=== PATIENT | female | born 1935 ===

== ENCOUNTER 2017-10-23 22:42 | Inpatient (IN) | payer MEDICARE, OTHER ==
--- NOTE | 2017-10-23 23:00 | C.PDOC ---
History Of Present Illness 82 year old female is brought to the ED by EMS for evaluation of neck, chest pain. Patient states her chest and neck pain worsened after which she called 911 , patient at that time started c/o abdominal pain, had 1 episode of vomit. Patient received 4 mg zofran IV patient was found to be hypotensive at 60/40, patient received 500 cc bolus of normal saline after which BP started responding. Patient also repost 3 weeks ago she fell went to [facility] and got multiple X-Rays done but she still c/o pain to her neck. Patient is AOx3 , denies any other complaints at this time. Time Seen by Provider: 10/23/17 22:59 Chief Complaint (Nursing): Chest Pain History Per: Patient, EMS History/Exam Limitations: no limitations Onset/Duration Of Symptoms: Hrs Current Symptoms Are (Timing): Still Present Context: Other Severity: Moderate Pain Scale Rating Of: 5 Quality: Sharp, "Pain" Associated Symptoms: Nausea Exacerbating Factors: Turning, Movement Alleviating Factors: None Recent travel outside of the [place]: No Additional History Per: Patient Past Medical History Reviewed: Historical Data, Nursing Documentation, Vital Signs Vital Signs: Last Vital Signs Temp 99 F 10/24/17 04:15 Pulse 72 10/24/17 04:15 Resp 20 10/24/17 04:15 BP 110/52 L 10/24/17 04:15 Pulse Ox 93 L 10/24/17 04:23 - Medical History PMH: Anxiety, Asthma, HTN Surgical History: Appendectomy, Cholecystectomy Family History: States: Unknown Family Hx - Social History Hx Alcohol Use: No Hx Substance Use: No - Immunization History Hx Tetanus Toxoid Vaccination: No Hx Influenza Vaccination: No Hx Pneumococcal Vaccination: No Review Of Systems Constitutional: Negative for: Fever, Chills Eyes: Negative for: Vision Change Cardiovascular: Positive for: Chest Pain Respiratory: Negative for: Cough, Shortness of Breath Gastrointestinal: Positive for: Vomiting, Abdominal Pain Musculoskeletal: Positive for: Neck Pain. Negative for: Back Pain Skin: Negative for: Rash Neurological: Negative for: Weakness, Numbness, Headache, Dizziness Psych: Negative for: Anxiety Physical Exam - Physical Exam Appears: Non-toxic, No Acute Distress Skin: Warm, Dry Head: Normacephalic Eye(s): bilateral: Normal Inspection Nose: No Discharge Oral Mucosa: Moist Teeth: Edentulous Neck: Paracervical Tenderness, No Step Off Deformity, Supple Chest: Symmetrical, Tenderness (reproducible anterio chest wall discomfort) Cardiovascular: Rhythm Regular, No Murmur Respiratory: No Decreased Breath Sounds, No Rales, No Rhonchi, No Wheezing Gastrointestinal/Abdominal: Soft, No Tenderness, No Guarding, No Rebound Back: Normal Inspection Extremity: Pedal Edema (trace B/L) Extremity: Bilateral: Atraumatic Pulses: Left Dorsalis Pedis: Normal, Right Dorsalis Pedis: Normal Neurological/Psych: Oriented x3 Gait: Unable To Assess ED Course And Treatment - Laboratory Results Result Diagrams: 10/23/17 23:20 10/23/17 23:20 ECG: Interpreted By Me, Viewed By Me ECG Rhythm: Sinus Rhythm (60), Nonspecific Changes O2 Sat by Pulse Oximetry: 93 (On RA) Pulse Ox Interpretation: Normal - Radiology CXR: Interpreted by Me, Viewed By Me Progress Note: Plan: -EKG. -Labs. -CXR. -Ecotrin 325 mg PO. -Morphine 2 mg IVP. -UA Disposition Discussed With : Kristyn Ivan Comment: accepted the pt on her service and took over the care at 4:27 AM Doctor Will See Patient In The: Hospital Counseled Patient/Family Regarding: Studies Performed, Diagnosis - Disposition Disposition: HOSPITALIZED Disposition Time: 22:59 Condition: FAIR Forms: [facility] (Uruguayan) - POA Present On Arrival: Falls Or Trauma, Poor Glycemic Control - Clinical Impression Clinical Impression: Chest pain, Neck pain - Scribe Statement The provider has reviewed the documentation as recorded by the Scribe Uri Tomlinson All medical record entries made by the Scribe were at my direction and personally dictated by me. I have reviewed the chart and agree that the record accurately reflects my personal performance of the history, physical exam, medical decision making, and the department course for this patient. I have also personally directed, reviewed, and agree with the discharge instructions and disposition. Decision To Admit - Pt Status Changed To: Hospital Disposition Of: Inpatient - Admit Certification Admit to Inpatient:: After my assessment, the patient will require hospitalization for at least two midnights. This is because of the severity of symptoms shown, intensity of services needed, and/or the medical risk in this patient being treated as an outpatient. - InPatient: Physician Admission Certification: I certify that this patient requires 2 or more midnights of care for the following reason:: After my assessment, the patient will require hospitalization for at least two midnights. This is because of the severity of symptoms shown, intensity of services needed, and/or the medical risk in this patient being treated as an outpatient. - . Bed Request Type: Telemetry Admitting Physician: Kristyn Ivan Patient Diagnosis: Chest pain, Neck pain
[2017-10-23] MEDS ORDERED: Morphine 4 MG/ML VIAL IV ONE (23:06)
[2017-10-23] MEDS ORDERED: Aspirin 325 mg EC Tablets PO STA (23:06)
[2017-10-23 23:32] LABS: INR 1.1; PROTHROMBIN TIME 12.4 SECONDS (9.7-12.2)
[2017-10-23 23:38] LABS: ALB/GLOB RATIO 1.1 (1.0-2.1); ALBUMIN 3.6 g/dL (3.5-5.0); ALT/SGPT 37 U/L (9-52); AST/SGOT 29 U/L (14-36); BLOOD UREA NITROGEN 16 mg/dL (7-17); CALCIUM 8.2 mg/dl (8.6-10.4); GFR AFRICAN-AMERICAN > 60; GFR NON-AFRICAN AMERICAN > 60
[2017-10-23 23:40] LABS: HEMOGLOBIN 15.8 g/dL (11.0-16.0); MEAN CELL VOLUME 80.8 fL (81.0-99.0); MEAN CORPUSCULAR HEMOGLOBIN 26.8 pg (27.0-31.0); MEAN CORPUSCULAR HGB CONC 33.1 g/dL (33.0-37.0); MEAN PLATELET VOLUME 9.2 fL (7.2-11.7); PLATELET COUNT 131 K/uL (130-400); RBC 5.89 Mil/uL (3.80-5.20)
[2017-10-23 23:49] LABS: B-TYPE NATRIURETIC PEPTIDE 564 pg/mL (0-900)
[2017-10-23] MEDS ORDERED: Morphine 4 MG/ML VIAL ONE (23:55)
[2017-10-24 00:03] LABS: BANDS 8 % (0-2); LYMPHOCYTE 22 % (20-40); MONOCYTE 2 % (0-10); NEUTROPHIL 63 % (50-75); REACTIVE LYMPHOCYTES 5 % (0-0); TOTAL CELLS COUNTED 100
[2017-10-24 00:04] LABS: PLATELET ESTIMATE NORMAL (NORMAL)
[2017-10-24 00:05] LABS: NEUT # 2.1 K/uL (1.8-7.0)
[2017-10-24 00:06] LABS: LYMPH # 0.8 K/uL (1.0-4.3); MONO # 0.1 K/uL (0.0-0.8)
[2017-10-24] MEDS ORDERED: Potassium Chloride 10 mEq ER Tab PO STA (06:23)
[2017-10-24] MEDS ORDERED: Potassium Chloride 20 mEq ER Tab PO ONE ×3 (06:26→11:43)
[2017-10-24 08:19] LABS: CK-MB 0.23 ng/mL (0.0-3.38)
--- NOTE | 2017-10-24 08:53 | RAD ---
HISTORY: chest pain COMPARISON: Chest x-ray performed 10/23/17 TECHNIQUE: Chest, one view. FINDINGS: Examination limited by habitus. LUNGS: Moderate pulmonary venous congestion. No focal consolidation. Please note that chest x-ray has limited sensitivity for the detection of pulmonary masses. PLEURA: No significant pleural effusion identified. No definite pneumothorax . CARDIOVASCULAR: Heart size appears within normal limits. OSSEOUS STRUCTURES: Degenerative changes of the spine. VISUALIZED UPPER ABDOMEN: Unremarkable. OTHER FINDINGS: None. IMPRESSION: Moderate pulmonary venous congestion.
--- NOTE | 2017-10-24 09:13 | RAD ---
Cervical spine radiographs Indication: Neck pain Comparison: None available Findings: Suboptimal examination. Cervical spine is not well-visualized. Lateral view the cervical spine is not seen well beyond C4-C5. Multilevel degenerative changes including intervertebral disc space narrowing, osteophyte formation, and facet arthropathy. Diffuse osseous demineralization limits evaluation for acute fracture lines. The dens tip is obscured. No acute displaced fracture identified on markedly limited views. Limited visualization of the upper lung irene demonstrate nkey-[id number]-right apical interstitial prominence Impression: Suboptimal examination. Cervical spine is not well-visualized. Lateral view the cervical spine is not seen well beyond C4-C5. Diffuse osseous demineralization limits evaluation for acute fracture lines. The dens tip is obscured. Multilevel degenerative changes including intervertebral disc space narrowing, osteophyte formation, and facet arthropathy. No acute displaced fracture identified on markedly limited views. Limited visualization of the upper lung irene demonstrate kstr-ntbwhjg-lpqi-right apical interstitial prominence
[2017-10-24] MEDS: Metoprolol Succinate 25 mg XL Tab PO SCH (09:42)
[2017-10-24 11:07] LABS: MAGNESIUM 1.6 mg/dL (1.6-2.3)
[2017-10-24] MEDS ORDERED: Magnesium Sulfate 1 gm in D5W 1 GM/100 ML BAG IVPB ONE ×2 (14:30→14:45)
--- NOTE | 2017-10-24 14:33 | CP.PCM.PN ---
Subjective - Date & Time of Evaluation Date of Evaluation: 10/24/17 Time of Evaluation: 13:00 - Subjective Subjective: H&P dictated #[id number] Objective - Vital Signs/Intake and Output Vital Signs (last 24 hours): Temp Pulse Resp BP Pulse Ox 98 F 67 16 112/59 L 95 10/24/17 06:11 10/24/17 10:11 10/24/17 09:42 10/24/17 09:42 10/24/17 09:42 - Medications Medications: Current Medications Aspirin (Aspirin) 325 mg PO DAILY [facility] Last Admin: 10/24/17 09:42 Dose: 325 mg Heparin Sodium (Porcine) (Heparin) 5,000 units SC Q8 [facility] Last Admin: 10/24/17 13:55 Dose: 5,000 units Magnesium Sulfate/Dextrose (Magnesium Sulfate 1 Gm/100 Ml D5w) 1 gm in 100 mls @ 200 mls/hr IVPB ONCE ONE Stop: 10/24/17 14:59 Metoprolol Succinate (Toprol Xl) 25 mg PO BID [facility] Last Admin: 10/24/17 09:42 Dose: Not Given - Labs Labs: 10/23/17 23:20 10/23/17 23:20 PT 12.4 SECONDS (9.7-12.2) H 10/23/17 23:20 INR 1.1 10/23/17 23:20 APTT 27 SECONDS (21-34) 10/23/17 23:20
[2017-10-24] MEDS: Magnesium Chloride 64 mg ER Tab PO SCH (16:13)
[2017-10-24] MEDS: Pantoprazole 40 mg EC Tab PO SCH (16:14)
[2017-10-24 16:51] LABS: SQUAMOUS EPITHIAL 9 /hpf (0-5); URINE BACTERIA RARE (<OCC); URINE BILIRUBIN NEGATIVE (NEGATIVE); URINE BLOOD 1+ (NEGATIVE); URINE CLARITY Hazy (Clear); URINE COLOR Yellow (YELLOW); URINE GLUCOSE (UA) NORMAL (Normal); URINE LEUKOCYTE ESTERASE 3+ Leu/uL (Negative); URINE NITRATE NEGATIVE (NEGATIVE); URINE PROTEIN 1+ mg/dL (NEGATIVE); URINE UROBILINOGEN NORMAL mg/dL (0.2-1.0)
[2017-10-24 18:46] LABS: ALB/GLOB RATIO 1.1 (1.0-2.1); ALBUMIN 3.1 g/dL (3.5-5.0); ALT/SGPT 40 U/L (9-52); AMYLASE 34 U/L (30-110); AST/SGOT 27 U/L (14-36); BLOOD UREA NITROGEN 21 mg/dL (7-17); CALCIUM 7.5 mg/dl (8.6-10.4); GFR AFRICAN-AMERICAN > 60; GFR NON-AFRICAN AMERICAN 53; LIPASE 39 U/L (23-300)
[2017-10-24] MEDS ORDERED: cefTRIAXone IV 1 gm in Dextros 50 ML IVPB SCH (22:00)
[2017-10-25 01:15] VITALS: RESP 20
--- NOTE | 2017-10-25 01:25 | CON ---
DATE: HISTORY OF PRESENT ILLNESS: The patient is an 82 years old female who denies history of heart attack in the past. She presented because of neck pain, chest pain as well as abdominal pain and nausea. The patient did vomit once and required 4 mg on IV Zofran. In the ER, the patient was initially found to be hypotensive with blood pressure of 60/40 and received 500 mL of normal saline bolus. The patient 3 weeks ago, sustained a fall and was evaluated in [facility] and stated multiple x-rays were done. SOCIAL HISTORY: Nonsmoker, nondrinker. MEDICATIONS: Current medications, aspirin 325 mg once a day, subcutaneous heparin 5000 units q. 8 hours, IV magnesium sulphate replacement, Toprol XL 25 mg twice a day. Home medications include Pepcid, clonazepam, amlodipine and hydrochlorothiazide. REVIEW OF SYSTEMS: No fever or chills. No productive cough. No dizziness. PHYSICAL EXAMINATION: GENERAL: The patient is an elderly female who does not appear to be in any acute distress. VITAL SIGNS: Blood pressure 112/59, heart rate 67, temperature 98, respirations 16. HEENT: No pallor or icterus. NECK: No JVD. CHEST: Clear. HEART: S1 and S2 regular. EXTREMITIES: No edema. LABORATORY DATA: Hemoglobin and hematocrit 15.8 and 47.6, white count 3, platelet count 131,000. INR is 1.1, PTT 27. SMA-7, sodium 140, potassium 2.6, chloride 103, CO2 25, glucose 139. BUN 16, creatinine 0.8. Three sets of troponin are negative. Triglycerides elevated at 189. HDL cholesterol below normal at 21. TSH level is within normal limits. EKG revealed sinus rhythm with prolonged QT interval. Cervical spine x-ray, no acute displaced fracture identified or markedly limited views. ASSESSMENT: 1. Abnormal EKG with evidence of prolonged QT interval secondary to hypokalemia. 2. Profound hypokalemia. 3. Uncontrolled diabetes mellitus. 4. Neck pain with a history of recent fall 3 weeks ago. RECOMMENDATIONS: Continue current intravenous potassium placement and the IV fluids running at least to 100 mL/ hour. Continue metoprolol 25 mg twice a day. Obtain an echocardiogram. Repeat 12 lead EKG after completion of potassium replacement. Start Slow-Mag at 1 tablet twice a day as the patient's magnesium level is in the borderline at 1.6. Andrew Palomo MD
[2017-10-25] MEDS: Metoprolol Succinate 25 mg XL Tab PO SCH ×4 (02:23→18:55)
--- NOTE | 2017-10-25 02:56 | HP ---
CHIEF COMPLAINT: The patient is complaining of chest pain and neck pain since yesterday. Called 911. HISTORY OF PRESENT ILLNESS: Ms. Messer is an 82-year-old female with past medical history of diabetes mellitus, hypertension, questionable CAD, hyperlipidemia, GERD, who was recently admitted to [facility] status post fall about 2 weeks ago. was admitted, had multiple x-rays and multiple radiologic workup done at the hospital as per the patient. Came in to the ED for symptoms of chest pain and neck pain. All the history obtained from the patient via a Uzbek speaking president and cmo. As per the patient, her blood pressure was high. She took blood pressure medication and started noticing chest pain and lateral side of the neck pain. At which point, she called 911. By the time ambulance arrived, she was complaining of nausea, had an episode of vomiting for which she received Zofran. Then the patient was found to be hypotensive at blood pressure 60/40. The patient was given a fluid bolus and the patient was brought into the emergency room. The patient is still complaining of epigastric burning pain, nonradiating, complaining of neck pain on the left side. It was radiating to the left arm with questionable tingling and numbness. The patient lives at home. As per the patient, she lives alone. She does all her ADLs on her own, sometimes she uses a cane or a walker at home. She denies any headache. Denies any dizziness. Denies any shortness of breath. Denies any abdominal pain, diarrhea, or constipation. Denies any urinary complaints. Denies any leg pains or leg cramps. PAST MEDICAL HISTORY: As described, hypertension, diabetes mellitus, hyperlipemia, questionable CAD, asthma, and anxiety. PAST SURGICAL HISTORY: Underwent cholecystectomy, appendectomy, and tubal ligation. FAMILY HISTORY: Nothing contributed to the present illness. PERSONAL HISTORY: She is a . Living alone. Having children. She is independent of her ADLs. SOCIAL HISTORY: Denies smoking, alcohol, or drug abuse. ALLERGIES: SHE IS ALLERGIC TO FISH. HOME MEDICATIONS: Include hydrochlorothiazide, Pepcid, dicyclomine, clonazepam, amlodipine. REVIEW OF SYSTEMS: As described in the history of present illness. All other systems reviewed and was found to be negative. PHYSICAL EXAMINATION: GENERAL: Elderly female, lying in bed in no acute distress. VITAL SIGNS: Blood pressure 112/59, pulse 67, respirations 16, temperature 98 degrees Fahrenheit, O2 saturations 95% on 2 L nasal cannula. HEENT: Pupils are equal, round, and reactive to light and accommodation. Extraocular muscles are intact. No icterus. No pallor. No oral thrush. No pharyngeal congestion. NECK: Supple. No JVD. LUNGS: Bilateral vesicular breath sounds. No wheezing. No rhonchi. CVS: S1 and S2 present. Regular. ABDOMEN: Soft. Nontender. Bowel sounds are present. No guarding. No rigidity. No rebound tenderness noted. Reproducible epigastric pain noted. MINING TECHNICIAN: Alert, awake, oriented x3. No focal deficits noted. EXTREMITIES: No edema. Palpable peripheral pulses. LABORATORY DATA: Labs done from the ED: WBC 3.0, hemoglobin 15.8, hematocrit 47.6, and platelets 131. PT 12.4, INR 1.1, and PTT 27. Sodium 140, potassium 2.6, chloride 103, bicarbonate 25, BUN 16, creatinine 0.8, and glucose 141. Calcium 8.2, magnesium 1.6, total bilirubin 0.5, AST 29, ALT 37, alkaline phosphatase 68, and CPK 22. Cardiac enzymes x3 negative. ProBNP 564, total protein 6.9, albumin 3.6, triglyceides 189, cholesterol 101, LDL 45, HDL 21, and TSH 1.88. Chest x-ray negative for any infiltrates. Cervical x-rays negative for any acute fracture, but degenerative joint disease. EKG consistent with normal sinus rhythm at 60 beats per minute. Nonspecific ST-T wave abnormality noted. ASSESSMENT AND PLAN: Elderly female with history of hypertension, anxiety, gastroesophageal reflux disease, diabetes mellitus, questionable coronary artery disease with recent history of hospital admission to [facility] general floor, status post fall, had multiple tests done, and the patient retuning to emergency department with complaints of chest pain, neck pain, was found to be hypotensive, status post seeking double dose of antihypertensives, responded to fluids, and the patient is being admitted for further management. 1. Epigastric pain in the patient with multiple risk factors, rule out acute coronary syndrome, rule out secondary to gastritis, rule out atypical chest pain. 2. Left-sided neck pain. 3. Status post hypotension. Blood pressure is improving. 4. Hypokalemia. 5. Hypomagnesemia. 4. History of hypertension. PLAN: The patient is being admitted to telemetry, we will do serial cardiac enzymes, serial EKGs. We will check echocardiogram, continue with aspirin 325 mg daily. Give Protonix 40 mg daily. Obtain cardiology evaluation with Dr. Palomo. We will obtain all the records from [facility] for further review. Neck x-rays did not reveal any acute fractures other than degenerative joint disk diffuse. We will continue with pain medications, supplement potassium and magnesium and repeat labs. We will request physical therapy and occupational therapy consult. child protective services social worker per discharge planning. Discussed with the patient regarding subacute rehab care management. The patient is refusing at this time. We will try to contact the family members in a.m. and will obtain social media marketing analyst consult to reassess her living conditions, as the patient lives alone and has been claiming that she had multiple falls in the past few months. We will repeat labs in the morning. We will add further recommendation as her clinical course progresses. Kristyn Ivan MD
[2017-10-25] MEDS: Pantoprazole 40 mg EC Tab PO SCH (10:04)
[2017-10-25] MEDS: Magnesium Chloride 64 mg ER Tab PO SCH (10:06)
--- NOTE | 2017-10-25 11:10 | CP.PCM.PN ---
Subjective - Date & Time of Evaluation Date of Evaluation: 10/25/17 Time of Evaluation: 11:10 - Subjective Subjective: Progress note dictated # [id number] Objective - Vital Signs/Intake and Output Vital Signs (last 24 hours): Temp Pulse Resp BP Pulse Ox 97.6 F 63 20 158/78 H 98 10/25/17 07:30 10/25/17 07:30 10/25/17 07:30 10/25/17 07:30 10/25/17 07:30 - Medications Medications: Current Medications Acetaminophen (Tylenol 325mg Tab) 650 mg PO Q6 PRN PRN Reason: Pain, moderate (4-7) Last Admin: 10/25/17 10:06 Dose: 650 mg Aspirin (Aspirin) 325 mg PO DAILY [facility] Last Admin: 10/25/17 10:04 Dose: 325 mg Heparin Sodium (Porcine) (Heparin) 5,000 units SC Q8 [facility] Last Admin: 10/25/17 07:11 Dose: 5,000 units Ceftriaxone Sodium 1 gm/ (Sodium Chloride) 100 mls @ 100 mls/hr IVPB Q24H [facility] Last Admin: 10/25/17 02:23 Dose: 100 mls/hr Magnesium Chloride (Slow-Mag) 64 mg PO DAILY [facility] Last Admin: 10/25/17 10:06 Dose: 64 mg Metoprolol Succinate (Toprol Xl) 25 mg PO BID [facility] Last Admin: 10/25/17 10:04 Dose: 25 mg Pantoprazole Sodium (Protonix Ec Tab) 40 mg PO DAILY [facility] Last Admin: 10/25/17 10:04 Dose: 40 mg - Labs Labs: 10/23/17 23:20 10/24/17 18:20 PT 12.4 SECONDS (9.7-12.2) H 10/23/17 23:20 INR 1.1 10/23/17 23:20 APTT 27 SECONDS (21-34) 10/23/17 23:20
[2017-10-25 11:51] LABS: BASO % 0.7 % (0.0-2.0); EOS # 0.5 K/uL (0.0-0.7); EOS % 13.6 % (0.0-4.0); LYMPH # 1.2 K/uL (1.0-4.3); LYMPH % 33.1 % (20.0-40.0); MEAN CELL VOLUME 79.9 fL (81.0-99.0); MEAN CORPUSCULAR HEMOGLOBIN 26.7 pg (27.0-31.0); MEAN CORPUSCULAR HGB CONC 33.4 g/dL (33.0-37.0); MONO # 0.5 K/uL (0.0-0.8); MONO % 13.1 % (0.0-10.0); NEUT # 1.4 K/uL (1.8-7.0); NEUT % 39.5 % (50.0-75.0); NRBC % 0.1 % (0.0-2.0); RBC 4.89 Mil/uL (3.80-5.20); RED CELL DISTRIBUTION WIDTH 14.2 % (11.5-14.5); WHITE BLOOD COUNT 3.6 K/uL (4.8-10.8)
[2017-10-25 12:34] LABS: ALBUMIN 3.3 g/dL (3.5-5.0); ALT/SGPT 39 U/L (9-52); AST/SGOT 24 U/L (14-36); BLOOD UREA NITROGEN 21 mg/dL (7-17); CALCIUM 8.6 mg/dl (8.6-10.4); GFR AFRICAN-AMERICAN > 60; GFR NON-AFRICAN AMERICAN 60; MAGNESIUM 2.1 mg/dL (1.6-2.3)
--- NOTE | 2017-10-25 14:35 | CARD ---
APPROVED REPORT EKG Measurement Heart [id number] <Conclusion> Normal sinus rhythm Nonspecific ST and T wave abnormality Prolonged QT Abnormal ECG
--- NOTE | 2017-10-25 19:57 | PN ---
DATE: SUBJECTIVE: The patient denies chest pain, shortness of breath, or neck pain. PHYSICAL EXAMINATION: VITAL SIGNS: Blood pressure 161/87, heart rate 69, temperature 97.6, and respirations 20. HEENT: Normocephalic. CHEST: Clear. HEART: S1 and S2 regular. ABDOMEN: Soft. EXTREMITIES: No edema. LABORATORY DATA: Today's SMA-7 is within normal limits except for glucose of 144 and BUN of 21. Amylase and lipase are within normal limits. TSH level is within normal limits. Hemoglobin and hematocrit are 13 and 39, white count 3.6, platelet count has declined to 77,000. Repeat EKG was done yesterday; however, it is not accessible on the [employer] database for now, and I will review it in the chart. ASSESSMENT AND PLAN: 1. Chest pain, myocardial infarction was ruled out. 2. Thrombocytopenia. 3. History of recent fall. CONDITIONS: Change aspirin to 81 mg once a day. Discontinue subcutaneous heparin. Continue Slow-Mag and Toprol-XL . I will follow up echocardiographic study performed today. Obtain repeat CBC tomorrow and obtain serum D-Dimer. Andrew Palomo MD
[2017-10-25] MEDS ORDERED: Iohexol 300 100 ML IJ ONE (20:12)
--- NOTE | 2017-10-25 20:33 | CARD ---
APPROVED REPORT EXAM: Two-dimensional and M-mode echocardiogram with Doppler and color Doppler. Other Information Quality : Good[employer] : INDICATION Chest Pain 2D DIMENSIONS IVSd1.8 (0.7-1.1cm)LVDd3.6 (3.9-5.9cm) PWd1.6 (0.7-1.1cm)LVDs2.6 (2.5-4.0cm) FS (%) 28.1 %LVEF (%)55.3 (>50%) M-Mode DIMENSIONS Left Atrium (MM)4.55 (2.5-4.0cm)IVSd1.54 (0.7-1.1cm) Aortic Root2.81 (2.2-3.7cm)LVDd4.70 (4.0-5.6cm) Aortic Cusp Exc.2.12 (1.5-2.0cm)PWd1.48 (0.7-1.1cm) FS (%) 42 %LVDs2.74 (2.0-3.8cm) LVEF (%)73 (>50%) Mitral Valve MV E Buevmfdi12.1cm/sMV A Thqlwqcx144.1cm/sE/A ratio0.6 TDI E/Lateral E'0.0E/Medial E'0.0 Tricuspid Valve TR Peak Suqbpoqb105tm/sTR Peak Gr.25mmHg LEFT VENTRICLE The left ventricle is normal size. There is moderate concentric left ventricular hypertrophy. The left ventricular function is normal. The left ventricular ejection fraction is within the normal range. 55%. No regional wall motion abnormalities noted. Transmitral Doppler flow pattern is Grade I-abnormal relaxation pattern. No left ventricle thrombus noted on this study. There is no ventricular septal defect visualized. There is no left ventricular aneurysm. There is no mass noted in the left ventricle. RIGHT VENTRICLE The right ventricle is normal size. There is normal right ventricular wall thickness. The right ventricular systolic function is normal. ATRIA The left atrium size is mildly dilated. The right atrium size is normal. The interatrial septum is intact with no evidence for an atrial septal defect. AORTIC VALVE The aortic valve is normal in structure and function. No aortic regurgitation is present. There is no aortic valvular stenosis. There is no aortic valvular vegetation. MITRAL VALVE The mitral valve is normal in structure and function. There is no evidence of mitral valve prolapse. There is no mitral valve stenosis. There is no mitral valve regurgitation noted. TRICUSPID VALVE The tricuspid valve is normal in structure and function. There is no tricuspid valve regurgitation noted. There is no tricuspid valve prolapse or vegetation. There is no tricuspid valve stenosis. PULMONIC VALVE The pulmonary valve is normal in structure and function. There is no pulmonic valvular regurgitation. There is no pulmonic valvular stenosis. GREAT VESSELS The aortic root is normal in size. The ascending aorta is normal in size. The pulmonary artery is normal. The IVC is normal in size and collapses >50% with inspiration. PERICARDIAL EFFUSION The pericardium appears normal. There is no pleural effusion. <Conclusion> The left ventricular function is normal. Transmitral Doppler flow pattern is Grade I-abnormal relaxation pattern. The left atrium size is mildly dilated. Normal Doppler.
--- NOTE | 2017-10-25 21:16 | CARD ---
APPROVED REPORT EKG Measurement Heart [id number] <Conclusion> Normal sinus rhythm Prolonged QT Abnormal ECG
--- NOTE | 2017-10-25 22:15 | CT ---
EXAM: CT Angiography Chest With Intravenous Contrast CLINICAL HISTORY: 82 years old, female; Pain; Chest pain; Left-sided chest pain; Additional info: R/O pe TECHNIQUE: Axial computed tomographic angiography images of the chest with intravenous contrast using pulmonary embolism protocol. All CT scans at this facility use one or more dose reduction techniques, viz.: automated exposure control; ma/kV adjustment per patient size (including targeted exams where dose is matched to indication; i.e. head); or iterative reconstruction technique. MIP reconstructed images were created and reviewed. Coronal and sagittal reformatted images were created and reviewed. CONTRAST: 100 mL of omnipaque 300 administered intravenously. COMPARISON: No relevant prior studies available. FINDINGS: Pulmonary arteries: No pulmonary embolism. Aorta: Wurw-iv-ddlsnnhw atherosclerotic disease. No aneurysm. Lungs: Mild mosaic pattern of lung parenchyma. Minimal interlobular septal thickening. No consolidation. Pleural space: Trace to small LEFT pleural effusion. No pneumothorax. Heart: Mild cardiomegaly. No significant pericardial effusion. Coronary artery calcifications. Bones/joints: Degenerative changes of shoulders and spine. Mild compression fracture superior endplate L1 vertebral body, acute or subacute. Soft tissues: Unremarkable. Lymph nodes: No pathologically enlarged lymph nodes. Adrenals: Mild hypertrophy of adrenal glands. 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 IMPRESSION: 1. No CT evidence of pulmonary embolism. 2. Probable early interstitial edema. Clinical correlation is needed. 3. Incidental/non-acute findings are described above.
--- NOTE | 2017-10-26 00:25 | PN ---
DATE: 10/25/2017. SUBJECTIVE: The patient was seen and examined at bedside. The patient is feeling better, still complaining of intermittent epigastric pain and complaining of left sided neck pain worse on moving neck to the right side and gets better on moving to the left side. Denies any tingling or numbness. Denies any other symptoms. PHYSICAL EXAMINATION: GENERAL: An elderly female lying in bed in no acute distress. VITAL SIGNS: Blood pressure 140/75, pulse 66, respirations 20, temperature 97.6 degrees Fahrenheit, O2 saturations 97% on 2 L nasal cannula. HEENT: Pupils are equal, round, and reacting to light and accommodation. Extraocular muscles are intact. No icterus. No pallor. No oral thrush. No pharyngeal congestion. NECK: Supple. No JVD. No thyromegaly. CHEST: Moving equally bilaterally on respiration. LUNGS: Bilateral vesicular breath sounds. No wheezing. No rhonchi. CVS: S1 and S2 present. Regular. ABDOMEN: Soft. Nontender. Bowel sounds are present. No guarding. No rigidity. No rebound tenderness noted. TYRE FINISHER AND EXAMINER: Alert, awake, oriented x3. No focal deficits noted. EXTREMITIES: No edema. Palpable peripheral pulses. MEDICATIONS: Include Tylenol as needed, aspirin 325 mg daily, Rocephin 1 gm daily, Flomax p.o. daily, Toprol 25 mg p.o. b.i.d., Protonix 40 mg p.o. daily. LABORATORY DATA: From this morning; WBC 3.6, hemoglobin 13, hematocrit 39, and platelets 77. D-dimer 2503. Sodium 137, potassium 4.3, chloride 105, bicarbonate 23, BUN 21, creatinine 0.9, and glucose 144. Calcium 8.6, phosphorus 3.1, magnesium 2.1, total bilirubin 0.6, AST 24, ALT 39, alkaline phosphatase 59, total protein 6.6, albumin 3.3. UA specific gravity 1.019, pH 5.0, blood 1+, leukocyte esterase 3+, wbc 51. Urine culture results pending. Echocardiogram shows left ventricular function normal, grade 1 abnormal relaxation pattern, left atrium size is mildly dilated, normal Doppler. ASSESSMENT AND PLAN: Elderly female with history of hypertension, diabetes mellitus, coronary artery disease, and gastroesophageal reflux disease, admitted to [facility] recently for fall, returned to [facility] for chest pain and left sided neck pain. The patient is ruled out for acute coronary syndrome, now developed thrombocytopenia probably secondary to heparin induced as she has been getting heparin for deep venous thrombus prophylaxis, elevated D-dimer, rule out thromboembolic conditions. We will do lower extremity Doppler and CT chest to rule out any pulmonary embolism. We will repeat labs in the morning, monitor platelets closely. Cardiology input appreciated. We will continue with her home medications. We will add further recommendation as her clinical course progresses. Kristyn Ivan MD
[2017-10-26 08:21] LABS: BASO % 0.5 % (0.0-2.0); EOS # 0.5 K/uL (0.0-0.7); EOS % 12.3 % (0.0-4.0); HEMOGLOBIN 12.9 g/dL (11.0-16.0); LYMPH # 1.6 K/uL (1.0-4.3); LYMPH % 37.7 % (20.0-40.0); MEAN CELL VOLUME 79.6 fL (81.0-99.0); MEAN CORPUSCULAR HGB CONC 33.9 g/dL (33.0-37.0); MEAN PLATELET VOLUME 9.7 fL (7.2-11.7); MONO # 0.7 K/uL (0.0-0.8); MONO % 16.7 % (0.0-10.0); NEUT # 1.4 K/uL (1.8-7.0); NEUT % 32.8 % (50.0-75.0); NRBC % 0.2 % (0.0-2.0); RBC 4.77 Mil/uL (3.80-5.20); RED CELL DISTRIBUTION WIDTH 14.4 % (11.5-14.5); WHITE BLOOD COUNT 4.4 K/uL (4.8-10.8)
[2017-10-26 08:39] LABS: ALB/GLOB RATIO 1.4 (1.0-2.1); ALBUMIN 3.3 g/dL (3.5-5.0); ALT/SGPT 37 U/L (9-52); AST/SGOT 21 U/L (14-36); BLOOD UREA NITROGEN 15 mg/dL (7-17); CALCIUM 8.9 mg/dl (8.6-10.4); GFR AFRICAN-AMERICAN > 60; GFR NON-AFRICAN AMERICAN > 60
[2017-10-26] MEDS: Magnesium Chloride 64 mg ER Tab PO SCH (09:49)
[2017-10-26] MEDS: Metoprolol Succinate 25 mg XL Tab PO SCH ×2 (09:49→18:55)
[2017-10-26] MEDS: Pantoprazole 40 mg EC Tab PO SCH (09:49)
--- NOTE | 2017-10-26 10:03 | CP.PCM.PN ---
Subjective - Date & Time of Evaluation Date of Evaluation: 10/26/17 Time of Evaluation: 10:05 - Subjective Subjective: Discharge summary dictated #[id number] Objective - Vital Signs/Intake and Output Vital Signs (last 24 hours): Temp Pulse Resp BP Pulse Ox 98.3 F 54 L 20 150/71 96 10/26/17 07:15 10/26/17 07:15 10/26/17 07:15 10/26/17 07:15 10/26/17 07:15 - Medications Medications: Current Medications Acetaminophen (Tylenol 325mg Tab) 650 mg PO Q6 PRN PRN Reason: Pain, moderate (4-7) Last Admin: 10/26/17 01:36 Dose: 650 mg Aspirin (Aspirin) 325 mg PO DAILY [facility] Last Admin: 10/26/17 09:49 Dose: 325 mg Ceftriaxone Sodium 1 gm/ (Sodium Chloride) 100 mls @ 100 mls/hr IVPB Q24H [facility] Last Admin: 10/25/17 22:15 Dose: 100 mls/hr Magnesium Chloride (Slow-Mag) 64 mg PO DAILY [facility] Last Admin: 10/26/17 09:49 Dose: 64 mg Metoprolol Succinate (Toprol Xl) 25 mg PO BID [facility] Last Admin: 10/26/17 09:49 Dose: 25 mg Pantoprazole Sodium (Protonix Ec Tab) 40 mg PO DAILY [facility] Last Admin: 10/26/17 09:49 Dose: 40 mg - Labs Labs: 10/26/17 07:55 10/26/17 07:55 PT 12.4 SECONDS (9.7-12.2) H 10/23/17 23:20 INR 1.1 10/23/17 23:20 APTT 27 SECONDS (21-34) 10/23/17 23:20
--- NOTE | 2017-10-26 12:48 | VASCLAB ---
PROCEDURE: Lower Extremity Venous Duplex Exam. HISTORY: Chest pain, r/o dvt PRIORS: None. TECHNIQUE: Bilateral common femoral, femoral, popliteal and posterior tibial, peroneal and great saphenous veins were evaluated. Flow was assessed with color Doppler, compressibility, assessment of phasic flow and augmentation response. Report prepared by Troy Redding, ASNTI, RVT FINDINGS: RIGHT: 1. Common Femoral Vein: 1.1. Compressibility - Fully compressible: Thrombus - None : Flow - Phasic: Augmentation -Normal: Reflux - None. 2. Femoral Vein: 2.1. Compressibility - Fully compressible: Thrombus - None : Flow - Phasic: Augmentation -Normal: Reflux - None. 3. Popliteal Vein: 3.1. Compressibility - Fully compressible: Thrombus - None : Flow - Phasic: Augmentation -Normal: Reflux - None. 4. Posterior Tibial Vein: 4.1. Compressibility - Fully compressible: Thrombus - None: Flow - Phasic: Augmentation -Normal: Reflux - None. 5. Peroneal Vein: 5.1. Compressibility - Fully compressible: Thrombus - None: Flow - Phasic: Augmentation -Normal: Reflux - None. 6. Great Saphenous Vein: 6.1. Compressibility - Fully compressible: Thrombus - None: Flow - Phasic: Augmentation - Normal: Reflux - None. LEFT: 1. Common Femoral Vein: 1.1. Compressibility - Fully compressible: Thrombus - None: Flow - Phasic: Augmentation -Normal: Reflux - None. 2. Femoral Vein: 2.1. Compressibility - Fully compressible: Thrombus - None: Flow - Phasic: Augmentation -Normal: Reflux - None. 3. Popliteal Vein: 3.1. Compressibility - Fully compressible: Thrombus - None : Flow - Phasic: Augmentation -Normal: Reflux - None. 4. Posterior Tibial Vein: 4.1. Compressibility - Fully compressible: Thrombus - None: Flow - Phasic: Augmentation -Normal: Reflux - None. 5. Peroneal Vein: 5.1. Compressibility - Fully compressible: Thrombus - None: Flow - Phasic: Augmentation -Normal: Reflux - None. 6. Great Saphenous Vein: 6.1. Compressibility - Fully compressible: Thrombus - None: Flow - Phasic: Augmentation - Normal: Reflux - None. OTHER FINDINGS: Right: None significant. Left: None significant. IMPRESSION: Right: No evidence of deep or superficial vein thrombosis of the right lower extremity. Normal valve function noted of the right side. Left: No evidence of deep or superficial vein thrombosis of the left lower extremity. Normal valve function noted of the left side.
[2017-10-26] MEDS ORDERED: Oxycodone/Acetaminophen 5/325 mg Tab PO PRN (15:01)
--- NOTE | 2017-10-26 17:29 | CT ---
CT cervical spine without IV contrast Indication: Neck pain Comparison: Cervical spine radiographs performed 10/24/17 Technique: Axial computed tomography images were obtained of the cervical spine without the use of intravenous contrast. Coronal and sagittal reformatted images were created and reviewed. This CT exam was performed using 1 or more of the following dose reduction techniques: Automated exposure control, adjustment of the MAA and/or kV according to patient size, and/or use of iterative reconstruction technique. Radiation dose: Total exam DLP = 394.03 mGy-cm. Findings: There is no evidence of acute fracture or subluxation. Osseous demineralization. Multilevel degenerative changes including intervertebral disc space narrowing and osteophyte formation. The prevertebral soft tissues and spinolaminar lines appear intact. The lateral masses are preserved. The dens tip is intact. There is proper alignment of the lateral masses of C1 with the C2 vertebral body. Included portions of the thyroid gland appear unremarkable. Included portions of lung apices appear clear. Nonspecific lymph nodes scattered throughout the neck. Partially imaged 1.3 x 0.9 cm elliptical shaped soft tissue in the region of the left parotid gland; correlate clinically for possibility of intra parotid or periparotid lymph node or mass. Impression: No evidence of acute fracture or subluxation. Osseous demineralization. Multilevel degenerative changes. Partially imaged 1.3 x 0.9 cm elliptical shaped soft tissue in the region of the left parotid gland; correlate clinically for possibility of intra parotid or periparotid lymph node or mass. Outpatient CT soft tissue of the neck with IV contrast recommended for further evaluation. Nonspecific prominent lymph nodes scattered throughout the neck bilaterally.
--- NOTE | 2017-10-26 17:57 | CP.PCM.PN ---
Subjective - Date & Time of Evaluation Date of Evaluation: 10/26/17 Time of Evaluation: 17:53 - Subjective Subjective: PATIENT WAS ADMITTED FOR CHEST PAIN AND NECK PAIN AAOX3 DENIES CHEST PAIN BUT COMPLAIN OF NECK DISCOMFORT NO SIGN OF DISTRESS NOTED Objective - Vital Signs/Intake and Output Vital Signs (last 24 hours): Temp Pulse Resp BP Pulse Ox 98.3 F 56 L 20 150/71 96 10/26/17 07:15 10/26/17 15:55 10/26/17 07:15 10/26/17 07:15 10/26/17 07:15 - Medications Medications: Current Medications Acetaminophen (Tylenol 325mg Tab) 650 mg PO Q6 PRN PRN Reason: Pain, moderate (4-7) Last Admin: 10/26/17 01:36 Dose: 650 mg Aspirin (Aspirin) 325 mg PO DAILY [facility] Last Admin: 10/26/17 09:49 Dose: 325 mg Ceftriaxone Sodium 1 gm/ (Sodium Chloride) 100 mls @ 100 mls/hr IVPB Q24H [facility] Last Admin: 10/25/17 22:15 Dose: 100 mls/hr Magnesium Chloride (Slow-Mag) 64 mg PO DAILY [facility] Last Admin: 10/26/17 09:49 Dose: 64 mg Metoprolol Succinate (Toprol Xl) 25 mg PO BID [facility] Last Admin: 10/26/17 09:49 Dose: 25 mg Oxycodone/Acetaminophen (Percocet 5/325 Mg Tab) 1 tab PO Q6H PRN PRN Reason: Pain, moderate (4-7) Stop: 10/29/17 15:02 Pantoprazole Sodium (Protonix Ec Tab) 40 mg PO DAILY [facility] Last Admin: 10/26/17 09:49 Dose: 40 mg - Labs Labs: 10/26/17 07:55 10/26/17 07:55 PT 12.4 SECONDS (9.7-12.2) H 10/23/17 23:20 INR 1.1 10/23/17 23:20 APTT 27 SECONDS (21-34) 10/23/17 23:20 Assessment and Plan - Assessment and Plan (Free Text) Assessment: PATIENT SEEN AND EXAMINED AT THE BEDSIDE CARDIAC WORK UP; RULE OUT CAD --INSURANCE COUNSELOR ON THE CASE DR SANTOS HELP APPRECIATED DDIMER ELEVATED; CTA NO EVIDENCE OF PE; DUPLEX OF LE IS NEG FOR DVT CERVICAL CAT SCAN SHOW NO EVIDENCE OF FRACTURE DISCUSS WITH DR SANTOS AND DR HADDAD WHO CLEAR PATIENT FOR DC FOLLOW UP WITH DR HADDAD OR YOUR PRIMARY DOCTOR 1-2 WEEKS AT HER OFFICE -- -CALL FOR YOUR APPOINTMENT CONTINUE ALL YOUR HOME MEDICATION ORDER NEW PRESCRIPTION GIVEN PERCOCET BY MOUTH EVERY 6 HOURS NEEDED FOR PAIN ACTIVITY TOLERATED CALL DR HADDAD OR GO TO THE EMERGENCY ROOM IF SYMPTOMS RETURN OR WORSENING DISCUSS WITH PATIENT AND PATIENT'S SON WHO AGREE AND VERBALIZED UNDERSTANDING
[2017-10-26 18:26] VITALS: BP 146/66; PULSE 58; TEMP 97.8; O2SAT 95
--- NOTE | 2017-10-26 18:51 | PN ---
DATE: SUBJECTIVE: The patient denies any chest pain. She complains of neck pain. PHYSICAL EXAMINATION: VITAL SIGNS: Blood pressure 150/71, heart rate 64, temperature 98.3, and respirations 20. HEENT: Normocephalic. CHEST: Clear. HEART: S1 and S2 regular. EXTREMITIES: No edema. LABORATORY DATA: CT angiogram of the chest performed yesterday revealed no CT evidence of pulmonary embolism, probable interstitial edema. Venous Doppler of lower extremity, no DVT noted. ASSESSMENT: 1. Chest pain, myocardial infarction ruled out. 2. Uncontrolled diabetes mellitus. 3. History of recent fall. CONDITIONS: Continue current aspirin, IV Rocephin, oral Protonix, Toprol-XL. Consider MRI of the neck spine. Andrew Palomo MD
--- NOTE | 2017-10-27 12:36 | CARD ---
APPROVED REPORT EKG Measurement Heart [id number] <Conclusion> Normal sinus rhythm Nonspecific T wave abnormality Abnormal ECG
== END 2017-10-26 19:00 | disposition home or self-care (01) | DRG 641 ==
LOC: C.ER 22:42 → C.9E 10-24 04:25 → C.5S 10-24 17:38
PROVIDERS: ADMIT Internal Medicine; ATTEND Internal Medicine
DX: E87.6 Hypokalemia (principal); I95.9 Hypotension, unspecified; E11.65 Type 2 diabetes mellitus with hyperglycemia; D69.6 Thrombocytopenia, unspecified; E83.42 Hypomagnesemia; I25.10 Atherosclerotic heart disease of native coronary artery without angina pectoris; I10 Essential (primary) hypertension; J45.909 Unspecified asthma, uncomplicated; K21.9 Gastro-esophageal reflux disease without esophagitis; E78.5 Hyperlipidemia, unspecified; M54.2 Cervicalgia; Z91.81 History of falling; I25.2 Old myocardial infarction

== ENCOUNTER 2018-07-17 08:45 | Inpatient (IN) | payer MEDICARE, OTHER ==
[2018-07-17] MEDS ORDERED: Albuterol-Ipratrop 3 mg / 0.5 (3 ml) UD ONE (09:29)
[2018-07-17] MEDS ORDERED: Albuterol-Ipratrop 3 mg / 0.5 (3 ml) UD INH STA ×2 (09:36→10:20)
[2018-07-17 09:53] LABS: BASO % 0.4 % (0.0-2.0); EOS % 0.8 % (0.0-4.0); LYMPH # 0.3 K/uL (1.0-4.3); LYMPH % 14.3 % (20.0-40.0); MEAN CELL VOLUME 80.3 fL (81.0-99.0); MEAN CORPUSCULAR HEMOGLOBIN 26.5 pg (27.0-31.0); MEAN PLATELET VOLUME 8.7 fL (7.2-11.7); MONO # 0.1 K/uL (0.0-0.8); MONO % 2.8 % (0.0-10.0); NEUT # 1.5 K/uL (1.8-7.0); NEUT % 81.7 % (50.0-75.0); RBC 6.21 Mil/uL (3.80-5.20); RED CELL DISTRIBUTION WIDTH 13.5 % (11.5-14.5)
[2018-07-17 10:02] LABS: HEMOGLOBIN 16.5 g/dL (11.0-16.0); WHITE BLOOD COUNT 1.8 K/uL (4.8-10.8)
[2018-07-17 10:03] LABS: NRBC % 1.3 % (0.0-2.0)
[2018-07-17 10:18] LABS: ALB/GLOB RATIO 1.3 (1.0-2.1); ALBUMIN 3.5 g/dL (3.5-5.0); ALT/SGPT 25 U/L (9-52); AST/SGOT 45 U/L (14-36); BLOOD UREA NITROGEN 18 mg/dL (7-17); CALCIUM 8.6 mg/dl (8.6-10.4); GFR NON-AFRICAN AMERICAN 60
--- NOTE | 2018-07-17 10:18 | RAD ---
Date of service: 07/17/2018 HISTORY: cough COMPARISON: No prior. FINDINGS: LUNGS: No active pulmonary disease. PLEURA: No significant pleural effusion identified, no pneumothorax apparent. CARDIOVASCULAR: No aortic atherosclerotic calcification present. Borderline cardiomegaly. Extensive pulmonary vascular congestion appreciated. Trace fluid in the minor fissure. OSSEOUS STRUCTURES: No significant abnormalities. VISUALIZED UPPER ABDOMEN: Normal. OTHER FINDINGS: None. IMPRESSION: Extensive pulmonary vascular congestion. Borderline cardiomegaly.
[2018-07-17 10:35] LABS: B-TYPE NATRIURETIC PEPTIDE 576 pg/mL (0-900); CK-MB 1.31 ng/mL (0.0-3.38)
--- NOTE | 2018-07-17 10:54 | C.PDOC ---
History Of Present Illness 83 year old female presents to the ED for evaluation of shortness of breath since yesterday. Patient states her symptoms developed after she was cleaning her house with [employer] yesterday. Patient states her shortness of breath is worse with exertion. Patient appears short of breath upon ED arrival. She denies fever, chills, chest pain, nausea, vomiting. Time Seen by Provider: 07/17/18 09:04 Chief Complaint (Nursing): Chest Pain History Per: Patient History/Exam Limitations: no limitations Onset/Duration Of Symptoms: Hrs Current Symptoms Are (Timing): Still Present Quality: denies: "Pain" Associated Symptoms: denies: Nausea Additional History Per: Patient Past Medical History Reviewed: Historical Data, Nursing Documentation, Vital Signs Vital Signs: Last Vital Signs Temp 97.5 F L 07/17/18 08:54 Pulse 70 07/17/18 09:13 Resp 20 07/17/18 09:13 BP 114/59 L 07/17/18 08:54 Pulse Ox 2 L 07/17/18 09:13 - Medical History PMH: Anxiety, Asthma, HTN Surgical History: Appendectomy, Cholecystectomy Family History: States: Unknown Family Hx - Social History Hx Alcohol Use: No Hx Substance Use: No - Immunization History Hx Tetanus Toxoid Vaccination: No Hx Influenza Vaccination: No Hx Pneumococcal Vaccination: No Review Of Systems Constitutional: Negative for: Fever, Chills Cardiovascular: Negative for: Chest Pain Respiratory: Positive for: Shortness of Breath Gastrointestinal: Negative for: Nausea, Vomiting Physical Exam - Physical Exam Appears: Non-toxic, No Acute Distress Skin: Normal Color, Warm, Dry Head: Atraumatic, Normacephalic Eye(s): bilateral: Normal Inspection Oral Mucosa: Moist Neck: Supple Chest: Symmetrical, No Deformity, No Tenderness Cardiovascular: Rhythm Regular, No Murmur Respiratory: Rales, Wheezing Extremity: Normal ROM, Capillary Refill (less than 2 seconds ) Neurological/Psych: Oriented x3, Normal Speech, Normal Cognition ED Course And Treatment - Laboratory Results Result Diagrams: 07/17/18 09:46 07/17/18 09:46 ECG: Interpreted By Me, Viewed By Me ECG Rhythm: Sinus Rhythm Interpretation Of ECG: Normal Sinus Rhythm at rate 71bpm. Normal intervals and axis. Nonspecific ST/T wave changes. Rate From EC O2 Sat by Pulse Oximetry: 2 - Other Rad CXR X-Ray: Viewed By Me, Read By Radiologist Interpretation: Date of service: 07/17/2018. HISTORY: cough. COMPARISON: No prior. FINDINGS: LUNGS: No active pulmonary disease. PLEURA: No significant pleural effusion identified, no pneumothorax apparent. CARDIOVASCULAR: No aortic atherosclerotic calcification present. Borderline cardiomegaly. Extensive pulmonary vascular congestion appreciated. Trace fluid in the minor fissure. OSSEOUS STRUCTURES: No significant abnormalities. VISUALIZED UPPER ABDOMEN: Normal. OTHER FINDINGS: None. IMPRESSION: Extensive pulmonary vascular congestion. Borderline cardiomegaly. Medical Decision Making Medical Decision Making: Assessment: CHF Progress: Bloodwork, CXR, EKG ordered and reviewed. Duoneb INH, Lasix IVP, and Solu-Medrol IV given. Case discussed with Dr. Bryn Farah. Will admit to telemetry. Disposition Discussed With Dr.: Bryn Farah Doctor Will See Patient In The: Hospital Counseled Patient/Family Regarding: Studies Performed, Diagnosis - Disposition Disposition: HOSPITALIZED Disposition Time: 10:53 Condition: FAIR - Clinical Impression Clinical Impression: CHF (congestive heart failure) - Scribe Statement The provider has reviewed the documentation as recorded by the Scribe (Becka Presley) Provider Attestation: All medical record entries made by the Scribe were at my direction and personally dictated by me. I have reviewed the chart and agree that the record accurately reflects my personal performance of the history, physical exam, medical decision making, and the department course for this patient. I have also personally directed, reviewed, and agree with the discharge instructions and disposition.
--- NOTE | 2018-07-17 12:42 | CP.PCM.HP ---
<Urbano Mccabe - Last Filed: 07/17/18 14:40> History of Present Illness - History of Present Illness History of Present Illness: PGY-1 Medicine H & P for Dr. Farah Patient is an 83 year old female with PMH of HTN, HLD, asthma, GERD, possible CAD, migraine, and anxiety presenting with chest pain. She states that the pain started this morning when she woke up. She describes the pain to be burning, sharp, located in the middle of her chest, non-radiating, and 8/10 in severity. She states nothing makes the pain better or worse. She admits to one episode on non-bloody vomiting and one episode of non-bloody diarrhea last night. She denies palpitations, extremity swelling, and diaphoresis. She states that she has had this pain intermittently for many years. She was in [facility] 2 weeks ago for the same complaints and said that they did a lot of tests but everything was normal. She sees Dr. Vasiliy Hoyt and last saw him 4 days ago for chest pain. Dr. Amanda said everything was normal. Patient denies fevers, chills, cough, shortness of breath, abdominal pain, or urinary symptoms. In ED: Lasix 20mg IVP, duonebs, and Solumedrol 125mg IV given. PMD: Dr. Vasiliy Hoyt PMHx: HTN, HLD, asthma, GERD, possible CAD, migraine, and anxiety PSHx: Appendectomy, cholecystectomy, tubal ligation Family Hx: Father of an NE at age 69 Social Hx: Denied tobacco, alcohol, or drug use. She lives by herself at home. Her 2 years ago. Medications: Metoprolol, Aspirin 81mg, Xantac Allergies: Fish and seafood Present on Admission - Present on Admission Any Indicators Present on Admission: No History of DVT/PE: No History of Uncontrolled Diabetes: No Urinary Catheter: No Decubitus Ulcer Present: No Review of Systems - Constitutional Constitutional: Headache. absent: Fever - EENT Eyes: absent: Blurred Vision - Cardiovascular Cardiovascular: Chest Pain. absent: Diaphoresis, Dyspnea, Edema, Palpitations - Respiratory Respiratory: absent: Cough, Dyspnea, Wheezing - Gastrointestinal Gastrointestinal: Abdominal Pain, Diarrhea, Heartburn, Vomiting. absent: Bloating - Genitourinary Genitourinary: absent: Dysuria, Hematuria - Musculoskeletal Musculoskeletal: absent: Back Pain - Neurological Neurological: Headaches. absent: Abnormal Speech, Focal Weakness - Psychiatric Psychiatric: Anxiety Past Patient History - Infectious Disease Hx of Infectious Diseases: None - Past Medical History & Family History Past Medical History?: Yes - Past Social History Smoking Status: Never Smoked - CARDIAC Hx Hypertension: Yes - PULMONARY Hx Asthma: Yes - MUSCULOSKELETAL/RHEUMATOLOGICAL Hx Falls: Yes - GASTROINTESTINAL Hx Gastroesophageal Reflux: Yes Hx Irritable Bowel: Yes - PSYCHIATRIC Hx Anxiety: Yes Hx Substance Use: No - SURGICAL HISTORY Hx Appendectomy: Yes Hx Cholecystectomy: Yes - ANESTHESIA Hx Anesthesia: Yes Hx Anesthesia Reactions: No Hx Malignant Hyperthermia: No Meds Allergies/Adverse Reactions: Allergies Allergy/AdvReac Type Severity Reaction Status Date / Time FISH Allergy Verified 10/23/17 22:53 Physical Exam - Constitutional Appears: Well, Non-toxic, No Acute Distress - Head Exam Head Exam: ATRAUMATIC, NORMOCEPHALIC - Eye Exam Eye Exam: EOMI, Normal appearance Pupil Exam: NORMAL ACCOMODATION - ENT Exam ENT Exam: Mucous Membranes Moist - Respiratory Exam Respiratory Exam: Clear to Auscultation Bilateral, NORMAL BREATHING PATTERN. absent: Rales, Rhonchi, Wheezes - Cardiovascular Exam Cardiovascular Exam: REGULAR RHYTHM, +S1, +S2. absent: Gallop, Rubs, Systolic Murmur Additional comments: Chest pain non-reproducible upon palpation of costochondral joints - GI/Abdominal Exam GI & Abdominal Exam: Normal Bowel Sounds, Soft, Tenderness (Mildly tender to palpation in the epigastric region and LUQ). absent: Distended, Firm, Guarding - Extremities Exam Extremities exam: Positive for: normal inspection. Negative for: calf tenderness, pedal edema - Neurological Exam Neurological exam: Alert, CN II-XII Intact, Oriented x3 - Psychiatric Exam Psychiatric exam: Normal Affect, Normal Mood - Skin Skin Exam: Dry, Intact, Normal Color, Warm Results - Vital Signs Recent Vital Signs: Last Vital Signs Temp 97.5 F L 07/17/18 08:54 Pulse 72 07/17/18 11:19 Resp 18 07/17/18 11:19 BP 131/65 07/17/18 11:19 Pulse Ox 2 L 07/17/18 12:29 - Labs Result Diagrams: 07/17/18 09:46 07/17/18 09:46 Labs: Laboratory Results - last 24 hr 07/17/18 07/17/18 09:46 09:46 WBC 1.8 L* D RBC 6.21 H Hgb 16.5 H D Hct 49.9 H MCV 80.3 L MCH 26.5 L MCHC 33.0 RDW 13.5 Plt Count 90 L MPV 8.7 Neut % (Auto) 81.7 H Lymph % (Auto) 14.3 L [place] % (Auto) 2.8 Eos % (Auto) 0.8 Baso % (Auto) 0.4 Neut # (Auto) 1.5 L Lymph # (Auto) 0.3 L [place] # (Auto) 0.1 Eos # (Auto) 0.0 Baso # (Auto) 0.0 Differential Comment Sodium 141 Potassium 3.5 L Chloride 106 Carbon Dioxide 22 Anion Gap 17 BUN 18 H Creatinine 0.9 Est GFR ( Amer) > 60 Est GFR (Non-Af Amer) 60 Random Glucose 184 H Calcium 8.6 Total Bilirubin 0.5 AST 45 H D ALT 25 Alkaline Phosphatase 71 CK-MB (Mass) 1.31 Troponin I < 0.0120 NT-Pro-B Natriuret Pep 576 Total Protein 6.3 Albumin 3.5 Globulin 2.8 Albumin/Globulin Ratio 1.3 Assessment & Plan - Assessment and Plan (Free Text) Assessment: Patient is an 83 year old female with PMH of HTN, HLD, asthma, GERD, possible CAD, migraine, and anxiety presenting with chest pain. Plan: Chest pain: - Rule out ACS - EKG (07/17): NSR @ 71, no ST changes, QT prolongation: 473 - CXR (07/17): Extensive pulmonary vascular congestion. Mild cardiomegaly. - Troponin: < 0.01 x 1 - Next troponin at 16:00: f/u - ASA 81mg QD - Cardiology, Dr. Palomo consulted CHF exacerbation: - Lasix 20mg IVP, duonebs, Solumedrol 125mg IV given in ED - Lasix 20mg IVP BID - Hold home Metoprolol - CXR (07/17): Extensive pulmonary vascular congestion. Mild cardiomegaly. Hypokalemia: - Upon chart review, patient has history of hypokalemia - Potassium 20mg PO QD - Will continue to monitor Hx of CAD: - Echo: f/u - Echo: (10/24/2017): LVEF 55%, normal echo - ASA 81mg QD - Crestor 10mg PO HS - Lisinopril 5mg PO QD - Hold home Metoprolol Hx of HTN: - Lisinopril 5mg PO QD - Continue to monitor BP GERD: - Protonix 40mg PO QD Prophylaxis/diet: - Lovenox 40mg SC QD - Protonix 40mg PO QD - Heart healthy diet Discussed case with Dr. Sofi Mccabe, PGY-1 <Bryn Farah H - Last Filed: 07/17/18 15:47> Results - Vital Signs Recent Vital Signs: Last Vital Signs Temp 97.5 F L 07/17/18 08:54 Pulse 72 07/17/18 11:19 Resp 18 07/17/18 11:19 BP 131/65 07/17/18 11:19 Pulse Ox 2 L 07/17/18 14:06 - Labs Result Diagrams: 07/17/18 09:46 07/17/18 09:46 Labs: Laboratory Results - last 24 hr 07/17/18 07/17/18 07/17/18 09:46 09:46 14:33 WBC 1.8 L* D RBC 6.21 H Hgb 16.5 H D Hct 49.9 H MCV 80.3 L MCH 26.5 L MCHC 33.0 RDW 13.5 Plt Count 90 L MPV 8.7 Neut % (Auto) 81.7 H Lymph % (Auto) 14.3 L [place] % (Auto) 2.8 Eos % (Auto) 0.8 Baso % (Auto) 0.4 Neut # (Auto) 1.5 L Lymph # (Auto) 0.3 L [place] # (Auto) 0.1 Eos # (Auto) 0.0 Baso # (Auto) 0.0 Differential Comment Sodium 141 Potassium 3.5 L Chloride 106 Carbon Dioxide 22 Anion Gap 17 BUN 18 H Creatinine 0.9 Est GFR ( Amer) > 60 Est GFR (Non-Af Amer) 60 Random Glucose 184 H Calcium 8.6 Total Bilirubin 0.5 AST 45 H D ALT 25 Alkaline Phosphatase 71 CK-MB (Mass) 1.31 Troponin I < 0.0120 NT-Pro-B Natriuret Pep 576 Total Protein 6.3 Albumin 3.5 Globulin 2.8 Albumin/Globulin Ratio 1.3 Triglycerides 370 H D Cholesterol 120 LDL Cholesterol Direct 56 HDL Cholesterol 19 L Urine Color Yellow Urine Clarity Clear Urine pH 5.0 Ur Specific [place] 1.009 Urine Protein Negative Urine Glucose (UA) Normal Urine Ketones Negative Urine Blood Negative Urine Nitrate Negative Urine Bilirubin Negative Urine Urobilinogen Normal Ur Leukocyte Esterase Trace Urine WBC (Auto) 1 Urine RBC (Auto) < 1 Ur Squamous Epith Cells < 1 Urine Bacteria Mod H Hyaline Casts 3-5 H Attending/Attestation - Attestation I have personally seen and examined this patient.: Yes I have fully participated in the care of the patient.: Yes I have reviewed all pertinent clinical information: Yes Notes (Text): Medical attending: Patient was seen and examined by me. Agree with the above note by the resident. The patient was not in any acute distress when we saw her. She reported to us ongoing shortness of breath however improved The patient explains to us she has a history of acid reflux as well. Reportedly the patient was cleaning earlier today. The CXRAY suggest bilateral congestion - for now will start lasix BID and follow up with another C-XRAY tomorrow. Will follow up with a CT scan without contrast For now hold off on BB and if she feels better tomorrow can consider adding back on BB She has not had an echo recently so will check echo as well as repeat cardiac enzymes, will get a cardiology evaluation. We will try to get medical papers from [facility]. The patient has not had a WBC this low before. Will check CT scan, also consider hematology oncology evaluation Bryn Farah
[2018-07-17 13:06] LABS: HDL CHOLESTEROL 19 mg/dL (30-70)
[2018-07-17 13:17] LABS: LDL CHOLESTEROL 56 mg/dL (0-129)
[2018-07-17] MEDS: Pantoprazole 40 mg EC Tab PO SCH (13:40)
[2018-07-17] MEDS: Potassium Chloride 20 mEq ER Tab PO SCH (13:40)
[2018-07-17 14:49] LABS: SQUAMOUS EPITHIAL < 1 /hpf (0-5); URINE BACTERIA MOD (<OCC); URINE BILIRUBIN NEGATIVE (NEGATIVE); URINE BLOOD NEGATIVE (NEGATIVE); URINE CLARITY Clear (Clear); URINE COLOR Yellow (YELLOW); URINE GLUCOSE (UA) NORMAL (Normal); URINE LEUKOCYTE ESTERASE TRACE Leu/uL (Negative); URINE PROTEIN NEGATIVE (NEGATIVE); URINE UROBILINOGEN NORMAL mg/dL (0.2-1.0)
--- NOTE | 2018-07-17 15:40 | CT ---
Date of service: 07/17/2018 PROCEDURE: CT Chest without contrast HISTORY: Chest pain COMPARISON: Chest CT with contrast 10/25/2017. TECHNIQUE: Contiguous axial images were obtained through the chest without intravenous contrast enhancement. Sagittal and coronal reconstructions were performed. Radiation dose: Total exam DLP = 652.02 mGy-cm. This CT exam was performed using one or more of the following dose reduction techniques: Automated exposure control, adjustment of the mA and/or kV according to patient size, and/or use of iterative reconstruction technique. FINDINGS: LUNGS: Restrained motion degrades quality examination. Limited bilateral dependent atelectasis identified at the upper and lower lobes without definitive alveolitis pattern appreciated. 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 Central airways are clear. No discrete parenchymal mass appreciated within well-aerated lung. MEDIASTINUM: Non aneurysmal thoracic aorta. Mild cardiomegaly. Main pulmonary artery unremarkable. No vascular congestion. No lymphadenopathy. Calcific atherosclerotic changes are seen related to the thoracic aorta. PLEURA: Trace bilateral pleural effusions. No pneumothorax bilaterally. BONES: No fracture. No destructive lesion. UPPER ABDOMEN: Nonaneurysmal abdominal aortic calcific atherosclerotic changes are identified. OTHER FINDINGS: None. IMPRESSION: Marginal pulmonary vascular congestion. Limited bilateral dependent atelectasis bilateral lungs. Mild cardiomegaly.
[2018-07-17 15:46] VITALS: RESP 20
--- NOTE | 2018-07-17 23:57 | CON ---
DATE: 07/17/2018 REASON FOR CONSULTATION: Shortness of breath, nausea, and vomiting. HISTORY OF PRESENT ILLNESS: The patient is an 83-year-old female who presented because of shortness of breath, nausea, and vomiting apparently after she used in her house. The patient stated that she did have heart attack in the past. The patient was evaluated by me in October of this year when she was admitted because of neck pain. The patient at this time is mildly short of breath but denies any recent nausea or vomiting. She denies any retrosternal chest pain. SOCIAL HISTORY Nonsmoker, nondrinker. She has two daughters. MEDICATIONS: Aspirin 81 mg once a day, Crestor 10 mg once a day, K-Dur 20 mEq once a day, Lasix 20 mg intravenous twice a day, Lovenox 40 mg subcutaneous once a day, Protonix 40 mg p.o. once a day, Zestril 5 mg daily. REVIEW OF SYSTEMS: No fever or chills. The patient did report diarrhea. No dizziness or syncope. PHYSICAL EXAMINATION: GENERAL: The patient is an early female who does not appear to be in acute distress. VITAL SIGNS: Blood pressure 131/65, heart rate 72, temperature 97.5, respirations 16. HEENT: Normocephalic. CHEST: Diffuse bilateral rhonchi and harsh vesicular breath sounds. HEART: S1, S2 regular. ABDOMEN: Soft. EXTREMITIES: No edema. LABORATORY DATA: SMA-7, sodium 141, potassium 3.5, chloride 106, CO2 of 22, glucose 184, BUN 18, creatinine 0.9. SMA-7, sodium 141, potassium 3.5, chloride 106, CO2 of 22, glucose 184, BUN 18, creatinine 0.9. One set of troponin is negative. Triglycerides elevated at 370. Hemoglobin and hematocrit 16.5 and 49.9. White count 1.8, platelet count 98,000. EKG revealed sinus rhythm at the rate of 71, nonspecific ST changes and prolonged QT interval. Chest x-ray revealed extensive pulmonary vascular congestion with borderline cardiomegaly. Echocardiography study performed in October of this year revealed normal systolic function with moderate left atrium and normal Doppler study. ASSESSMENT: 1. Pulmonary congestion, rule out bilateral pneumonitis. 2. Grade 1 abnormal iliac relaxation pattern noted on echocardiography study performed in . 3. History of coronary artery disease with a heart attack in the past according to the patient. 4. Mild hypokalemia and prolonged QT interval on EKG. 5. Uncontrolled diabetes mellitus. 6. Leukopenia and thrombocytopenia. 7. Nausea and vomiting. RECOMMENDATION: Continue oral Protonix at 20 mg once a day. May hold aspirin therapy for now. Continue Crestor 10 mg once a day, K-Dur 20 milliequivalents orally daily, Lasix 20 mg intravenous twice a day, Zestril 5 mg once a day. The case was discussed with Dr. Farah, the primary physician. The patient will undergo chest CT scan, and I will obtain connective tissue disease markers. I would also recommend sending sputum for Gram stain and culture. Andrew Palomo MD
--- NOTE | 2018-07-18 08:15 | CP.PCM.PN ---
<Kan Love - Last Filed: 07/18/18 19:26> Subjective - Date & Time of Evaluation Date of Evaluation: 07/18/18 Time of Evaluation: 08:15 - Subjective Subjective: Progress note for Hospitalist service Patient seen and examined at bedside. She denies chest pain, shortness of breath or palpitations currently. She states she has right arm pain at the site of her IV along with some left arm pain from her shoulder to the her left hand. She admits she has gastritis and states she is experiencing some reflux like symp toms. She denies fevers, chills, dizziness, lightheadedness, nausea, vomiting, diarrhea, dysuria. She states she has had urinary incontinence for about 2 years and wears diapers at home. She states she has leg weakness and ambulates with a walker at home. She is independent of ADLs. Patient's home [facility] [phone] - called twice however went to [facility]. Objective - Vital Signs/Intake and Output Vital Signs (last 24 hours): Temp Pulse Resp BP Pulse Ox 97.8 F 72 20 121/70 96 07/18/18 08:13 07/18/18 08:13 07/18/18 08:13 07/18/18 08:13 07/18/18 08:13 Intake and Output: 07/18/18 07/18/18 06:59 18:59 Output Total 400 Balance -400 - Medications Medications: Current Medications Acetaminophen (Tylenol 325mg Tab) 650 mg PO Q6 PRN PRN Reason: Pain, Mild (1-3) Last Admin: 07/18/18 04:18 Dose: 650 mg Aspirin (Aspirin Chewable) 81 mg PO DAILY [facility] Last Admin: 07/17/18 13:40 Dose: 81 mg Enoxaparin Sodium (Lovenox) 40 mg SC DAILY [facility] Furosemide (Lasix) 20 mg IVP BID [facility] Last Admin: 07/17/18 17:41 Dose: 20 mg Influenza Virus Vaccine (Fluzone Quad [id number]) 60 mcg IM .ONCE ONE Stop: 07/19/18 12:01 Lisinopril (Zestril) 5 mg PO DAILY [facility] Last Admin: 07/17/18 13:40 Dose: 5 mg Pantoprazole Sodium (Protonix Ec Tab) 40 mg PO DAILY [facility] Last Admin: 07/17/18 13:40 Dose: 40 mg Pneumococcal Polyvalent Vaccine (Pneumovax 23 Vaccine) 0.5 ml IM .ONCE ONE Stop: 07/19/18 12:01 Potassium Chloride (K-Dur 20 Meq Er Tab) 20 meq PO DAILY [facility] Last Admin: 07/17/18 13:40 Dose: 20 meq Rosuvastatin Calcium (Crestor) 10 mg PO HS [facility] Last Admin: 07/17/18 21:40 Dose: 10 mg - Labs Labs: 07/17/18 09:46 07/17/18 09:46 - Constitutional Appears: Well, No Acute Distress - Head Exam Head Exam: ATRAUMATIC, NORMOCEPHALIC - Eye Exam Eye Exam: EOMI, PERRL - ENT Exam ENT Exam: Mucous Membranes Moist - Neck Exam Neck Exam: Full ROM. absent: Tenderness - Respiratory Exam Respiratory Exam: Chest Wall Tenderness (mild ), Rales (basilar rales on left ). absent: Rhonchi, Wheezes - Cardiovascular Exam Cardiovascular Exam: REGULAR RHYTHM, +S1, +S2. absent: Gallop, Rubs, Murmur - GI/Abdominal Exam GI & Abdominal Exam: Soft, Normal Bowel Sounds. absent: Distended, Firm, Guarding, Rigid, Tenderness - Extremities Exam Extremities Exam: Normal Capillary Refill. absent: Calf Tenderness, Pedal Edema, Tenderness - Neurological Exam Neurological Exam: Alert, Awake, Oriented x3 - Psychiatric Exam Psychiatric exam: Normal Affect, Normal Mood - Skin Skin Exam: Dry, Intact, Warm Assessment and Plan - Assessment and Plan (Free Text) Plan: Assessment: Patient is an 83 year old female with PMH of HTN, HLD, asthma, GERD, possible CAD, migraine, and anxiety presenting with chest pain. Plan: Chest pain: - Rule out ACS - EKG (07/17): NSR @ 71, no ST changes, QT prolongation: 473 - CXR (07/17): Extensive pulmonary vascular congestion. Mild cardiomegaly. - Troponins x3 negative. - ASA 81mg QD - Cardiology, Dr. Palomo consulted Patient states she was recently at [facility] for similar symptoms. Records from [facility] requested. CHF exacerbation: - Lasix 20mg IVP, duonebs, Solumedrol 125mg IV given in ED - Lasix 20mg IVP BID - Hold home Metoprolol - CXR (07/17): Extensive pulmonary vascular congestion. Mild cardiomegaly. Hypokalemia: - Upon chart review, patient has history of hypokalemia - Potassium 20mg PO QD - Will continue to monitor Hx of CAD: - Echo: normal LV systolic function, LV EF 77%. moderately dilated LA. Trace MR. Mild TR. LVH with diastolic dysfunction. - Echo: (10/24/2017): LVEF 55%, Grade 1 abnormal relaxation pattern - ASA 81mg QD - Crestor 10mg PO HS - Lisinopril 5mg PO QD - Hold home Metoprolol Hx of HTN: - Lisinopril 5mg PO QD - Continue to monitor BP GERD: - Protonix 40mg PO QD - She states she takes Zantac, Prilosec and Bentyl at home for her symptoms - Need to confirm with pharmacy, pt unsure of name of pharmacy only states that it is [address] [facility] [address] in [place] Prophylaxis/diet: - Lovenox 40mg SC QD - Protonix 40mg PO QD - Heart healthy diet - Follow up with pharmacy about home meds again tomorrow. Case discussed with Dr. Rachel Love, PGY1 <Kwesi Ramos - Last Filed: 07/19/18 09:13> Objective - Vital Signs/Intake and Output Vital Signs (last 24 hours): Temp Pulse Resp BP Pulse Ox 98.3 F 65 20 170/83 H 96 07/19/18 08:12 07/19/18 08:12 07/19/18 08:12 07/19/18 08:12 07/19/18 08:12 Intake and Output: 07/19/18 07/19/18 06:59 18:59 Intake Total 120 Output Total 2500 Balance -2380 - Medications Medications: Current Medications Acetaminophen (Tylenol 325mg Tab) 650 mg PO Q6 PRN PRN Reason: Pain, Mild (1-3) Last Admin: 07/18/18 15:52 Dose: 650 mg Aspirin (Aspirin Chewable) 81 mg PO DAILY [facility] Last Admin: 07/18/18 09:13 Dose: 81 mg Enoxaparin Sodium (Lovenox) 40 mg SC DAILY [facility] Last Admin: 07/18/18 09:13 Dose: 40 mg Furosemide (Lasix) 20 mg IVP BID [facility] Last Admin: 07/18/18 18:37 Dose: 20 mg Influenza Virus Vaccine (Fluzone Quad [id number]) 60 mcg IM .ONCE ONE Stop: 07/19/18 12:01 Lisinopril (Zestril) 5 mg PO DAILY [facility] Last Admin: 07/18/18 09:13 Dose: 5 mg Pantoprazole Sodium (Protonix Ec Tab) 40 mg PO DAILY [facility] Last Admin: 07/18/18 09:13 Dose: 40 mg Pneumococcal Polyvalent Vaccine (Pneumovax 23 Vaccine) 0.5 ml IM .ONCE ONE Stop: 07/19/18 12:01 Potassium Chloride (K-Dur 20 Meq Er Tab) 20 meq PO DAILY [facility] Last Admin: 07/18/18 09:13 Dose: 20 meq Rosuvastatin Calcium (Crestor) 10 mg PO HS [facility] Last Admin: 07/18/18 21:49 Dose: 10 mg - Labs Labs: 07/19/18 07:12 07/19/18 07:12 Attending/Attestation - Attestation I have personally seen and examined this patient.: Yes I have fully participated in the care of the patient.: Yes I have reviewed all pertinent clinical information, including history, physical exam and plan: Yes Notes (Text): Patient's breathing is improving,less pain Continue IV lasix. follow PT recommendation follow [facility]Co report get [facility] records I agree with the resident's notes
[2018-07-18] MEDS: Potassium Chloride 20 mEq ER Tab PO SCH (09:13)
[2018-07-18] MEDS: Enoxaparin 40 mg Syringe SC SCH (09:13)
[2018-07-18] MEDS: Pantoprazole 40 mg EC Tab PO SCH (09:13)
--- NOTE | 2018-07-18 09:52 | RAD ---
Date of service: 07/18/2018 HISTORY: Exacerbation CHF COMPARISON: Comparison made with prior CT scan and chest radiograph both dated 07/17/2018. FINDINGS: LUNGS: Slight improvement previously noted pulmonary venous congestive changes PLEURA: No significant pleural effusion identified, no pneumothorax apparent. CARDIOVASCULAR: Minor aortic atherosclerotic calcification present. Normal cardiac size. No pulmonary vascular congestion. OSSEOUS STRUCTURES: No significant abnormalities. VISUALIZED UPPER ABDOMEN: Normal. OTHER FINDINGS: None. IMPRESSION: Slight improvement previously noted pulmonary venous congestive changes.
[2018-07-18 14:14] LABS: BASO % 0.2 % (0.0-2.0); EOS # 0.1 K/uL (0.0-0.7); EOS % 2.3 % (0.0-4.0); LYMPH # 0.8 K/uL (1.0-4.3); LYMPH % 17.1 % (20.0-40.0); MEAN CELL VOLUME 79.2 fL (81.0-99.0); MEAN CORPUSCULAR HEMOGLOBIN 26.6 pg (27.0-31.0); MEAN CORPUSCULAR HGB CONC 33.6 g/dL (33.0-37.0); MEAN PLATELET VOLUME 8.9 fL (7.2-11.7); MONO # 0.7 K/uL (0.0-0.8); MONO % 15.8 % (0.0-10.0); NEUT # 2.9 K/uL (1.8-7.0); NEUT % 64.6 % (50.0-75.0); NRBC % 0.1 % (0.0-2.0); RBC 4.48 Mil/uL (3.80-5.20)
[2018-07-18 14:17] LABS: HEMOGLOBIN 11.9 g/dL (11.0-16.0); WHITE BLOOD COUNT 4.5 K/uL (4.8-10.8)
[2018-07-18 14:33] LABS: ALB/GLOB RATIO 1.4 (1.0-2.1); ALBUMIN 3.3 g/dL (3.5-5.0); CALCIUM 8.3 mg/dl (8.6-10.4)
--- NOTE | 2018-07-18 18:22 | CARD ---
APPROVED REPORT Date of service: 07/18/2018 EXAM: Two-dimensional and M-mode echocardiogram with Doppler and color Doppler. Other Information Quality : GoodRhythm : INDICATION Cardiac Disease: CAD Chest Pain Congestive Heart Failure RISK FACTORS Hypertension Hyperlipidemia 2D DIMENSIONS IVSd1.9 (0.7-1.1cm)LVDd3.8 (3.9-5.9cm) PWd1.4 (0.7-1.1cm)LA Skdtci70 (18-58mL) LVDs1.8 (2.5-4.0cm)FS (%) 53.2 % LVEF (%)77.0 (>50%)LVEF (Vital's)77.69 % IVC0.00 cm M-Mode DIMENSIONS RVDd2.60 (2.1-3.2cm)Left Atrium (MM)5.54 (2.5-4.0cm) IVSd1.37 (0.7-1.1cm)Aortic Root3.24 (2.2-3.7cm) LVDd3.88 (4.0-5.6cm)Aortic Cusp Exc.2.08 (1.5-2.0cm) PWd1.79 (0.7-1.1cm)FS (%) 41 % LVDs2.30 (2.0-3.8cm)LVEF (%)72 (>50%) Mitral Valve MV E Linczxag78.0cm/sMV A Ttkgpotd814.3cm/sE/A ratio0.7 TRFJ944.92 cm/s TDI Lateral E' Peak V5.13cm/sMedial E' Peak V4.03cm/sE/Lateral E'16.0 E/Medial E'20.3 Tricuspid Valve TR Peak [id number]/sTR Peak Gr.[id number] LEFT VENTRICLE The left ventricle is normal size. There is mild to moderate concentric left ventricular hypertrophy. The left ventricular function is normal. The left ventricular ejection fraction is within the normal range. There is normal LV segmental wall motion. Transmitral Doppler flow pattern is abnormal. RIGHT VENTRICLE The right ventricle is normal size. ATRIA The left atrium is moderately dilated. The right atrium size is normal. AORTIC VALVE The aortic valve is calcified but opens well. MITRAL VALVE Mitral regurgitation is trace to mild. TRICUSPID VALVE There is mild tricuspid regurgitation. <Conclusion> Normal LV systolic function. Moderately dilated LA. Trace MR. Mild TR. LVH with diastolic dysfunction.
--- NOTE | 2018-07-18 21:08 | PN ---
DATE: 07/18/2018 SUBJECTIVE: The patient's shortness of breath has improved. PHYSICAL EXAMINATION: VITAL SIGNS: Blood pressure 126/71, heart rate 77, temperature 97.8, respirations 20. HEENT: Normocephalic. CHEST: Minimal rhonchi. HEART: S1 and S2 regular. ABDOMEN: Soft. EXTREMITIES: No edema. LABORATORY DATA: Today's hemoglobin and hematocrit 11.9 and 35.4, white count 4.5, platelet count 70,000. Rheumatoid factor is negative and VICTORIANO profile is negative. Today's SMA-7, sodium 135, potassium 3.8, chloride 103, CO2 21, glucose 266, BUN 36, creatinine 1.1. Three sets of troponins are negative. Today's chest x-ray revealed improved pulmonary venous congestion and chest CT scan done yesterday revealed marginal pulmonary congestion, limited bilateral dependent atelectasis. Preliminary echo review revealed normal ejection fraction, moderate dilated left atrium and mild mitral insufficiency. ASSESSMENT: 1. Diastolic heart failure. 2. History of coronary artery disease according to the patient. 3. Thrombocytopenia and improved leukopenia. 4. Hypertension. RECOMMENDATION: Continue aspirin 81 mg once a day, Crestor 10 mg once a day, K-Dur 20 mEq once a day, Lasix 20 mg intravenously twice a day, Lovenox at 20 mg subcutaneous once a day, Zestril at 5 mg daily. Andrew Palomo MD
--- NOTE | 2018-07-18 21:46 | CARD ---
APPROVED REPORT Date of service: 07/17/2018 EKG Measurement Heart [id number] <Conclusion> Normal sinus rhythm Nonspecific ST and T wave abnormality Prolonged QT Abnormal ECG
[2018-07-19 07:22] LABS: BASO % 0.4 % (0.0-2.0); EOS # 0.4 K/uL (0.0-0.7); EOS % 6.7 % (0.0-4.0); HEMOGLOBIN 12.6 g/dL (11.0-16.0); LYMPH % 30.1 % (20.0-40.0); MEAN CELL VOLUME 78.6 fL (81.0-99.0); MEAN CORPUSCULAR HEMOGLOBIN 26.9 pg (27.0-31.0); MEAN CORPUSCULAR HGB CONC 34.2 g/dL (33.0-37.0); MONO % 14.4 % (0.0-10.0); NEUT # 3.3 K/uL (1.8-7.0); NEUT % 48.4 % (50.0-75.0); RBC 4.71 Mil/uL (3.80-5.20); WHITE BLOOD COUNT 6.7 K/uL (4.8-10.8)
[2018-07-19 07:48] LABS: ALB/GLOB RATIO 1.3 (1.0-2.1); ALBUMIN 3.5 g/dL (3.5-5.0); ALT/SGPT 28 U/L (9-52); AST/SGOT 20 U/L (14-36); CALCIUM 8.8 mg/dl (8.6-10.4); GFR NON-AFRICAN AMERICAN > 60
[2018-07-19 08:49] LABS: BLOOD UREA NITROGEN 27 mg/dL (7-17)
--- NOTE | 2018-07-19 09:25 | CP.PCM.PN ---
Subjective - Date & Time of Evaluation Date of Evaluation: 07/19/18 Time of Evaluation: 08:30 - Subjective Subjective: PGY-1 Medicine Progress Note for Dr. Ramos Patient was seen and examined today at bedside in no acute distress. Nurse reports no overnight events aside from Xanax request for sleep. Patient denies any acute complaints. Denies headache, nausea, vomiting, dizziness, abdominal pain, constipation, diarrhea. Objective - Vital Signs/Intake and Output Vital Signs (last 24 hours): Temp Pulse Resp BP Pulse Ox 98.3 F 65 20 170/83 H 96 07/19/18 08:12 07/19/18 08:12 07/19/18 08:12 07/19/18 08:12 07/19/18 08:12 Intake and Output: 07/19/18 07/19/18 06:59 18:59 Intake Total 120 Output Total 2500 Balance -2380 - Medications Medications: Current Medications Acetaminophen (Tylenol 325mg Tab) 650 mg PO Q6 PRN PRN Reason: Pain, Mild (1-3) Last Admin: 07/18/18 15:52 Dose: 650 mg Aspirin (Aspirin Chewable) 81 mg PO DAILY [facility] Last Admin: 07/18/18 09:13 Dose: 81 mg Enoxaparin Sodium (Lovenox) 40 mg SC DAILY [facility] Last Admin: 07/18/18 09:13 Dose: 40 mg Furosemide (Lasix) 20 mg IVP BID [facility] Last Admin: 07/18/18 18:37 Dose: 20 mg Influenza Virus Vaccine (Fluzone Quad [id number]) 60 mcg IM .ONCE ONE Stop: 07/19/18 12:01 Lisinopril (Zestril) 5 mg PO DAILY [facility] Last Admin: 07/18/18 09:13 Dose: 5 mg Pantoprazole Sodium (Protonix Ec Tab) 40 mg PO DAILY [facility] Last Admin: 07/18/18 09:13 Dose: 40 mg Pneumococcal Polyvalent Vaccine (Pneumovax 23 Vaccine) 0.5 ml IM .ONCE ONE Stop: 07/19/18 12:01 Potassium Chloride (K-Dur 20 Meq Er Tab) 20 meq PO DAILY [facility] Last Admin: 07/18/18 09:13 Dose: 20 meq Rosuvastatin Calcium (Crestor) 10 mg PO HS [facility] Last Admin: 07/18/18 21:49 Dose: 10 mg - Labs Labs: 07/19/18 07:12 07/19/18 07:12 - Constitutional Appears: Well, No Acute Distress - Head Exam Head Exam: ATRAUMATIC, NORMOCEPHALIC - Eye Exam Eye Exam: EOMI, PERRL - ENT Exam ENT Exam: Mucous Membranes Moist - Respiratory Exam Respiratory Exam: Rales, NORMAL BREATHING PATTERN. absent: Accessory Muscle Use, Rhonchi, Wheezes Additional comments: mild rales on L lung base - Cardiovascular Exam Cardiovascular Exam: REGULAR RHYTHM, +S1, +S2. absent: Gallop, Rubs, Murmur - GI/Abdominal Exam GI & Abdominal Exam: Soft, Normal Bowel Sounds. absent: Firm, Guarding, Rigid, Tenderness - Extremities Exam Extremities Exam: Normal Capillary Refill Additional comments: peripheral pulses intact bilaterally (radial, PT) - Neurological Exam Neurological Exam: Alert, Awake, Oriented x3 - Psychiatric Exam Psychiatric exam: Normal Affect, Normal Mood - Skin Skin Exam: Dry, Normal Color, Warm Assessment and Plan - Assessment and Plan (Free Text) Assessment: Patient is an 83 year old female with PMH of HTN, HLD, asthma, GERD, possible CAD, migraine, and anxiety presenting with chest pain from CHF exacerbation. Plan: CHF exacerbation: - Lasix 20mg IVP, duonebs, Solumedrol 125mg IV given in ED - Lasix 20mg IVP BID - Hold home Metoprolol - CXR (07/17): Extensive pulmonary vascular congestion. Mild cardiomegaly. Hypokalemia: - Upon chart review, patient has history of hypokalemia - Potassium 20mg PO QD - Will continue to monitor Chest pain: - Rule out ACS - EKG (07/17): NSR @ 71, no ST changes, QT prolongation: 473 - CXR (07/17): Extensive pulmonary vascular congestion. Mild cardiomegaly. - Troponins x3 negative. - ASA 81mg QD - Cardiology, Dr. Palomo consulted Patient states she was recently at [place] for similar symptoms. Records from [place] requested. CAD: - Echo: normal LV systolic function, LV EF 77%. moderately dilated LA. Trace MR. Mild TR. LVH with diastolic dysfunction. - Echo: (10/24/2017): LVEF 55%, Grade 1 abnormal relaxation pattern - ASA 81mg QD - Crestor 10mg PO HS - Lisinopril 5mg PO QD - Hold home Metoprolol HTN: - Lisinopril 5mg PO QD - Continue to monitor BP GERD: - Protonix 40mg PO QD - She states she takes Zantac, Prilosec and Bentyl at home for her symptoms - Need to confirm with pharmacy, pt unsure of name of pharmacy only states that it is on [facility] [address] in [place] Prophylaxis/diet: - Lovenox 40mg SC QD - Protonix 40mg PO QD - Heart healthy diet - Follow up with pharmacy about home meds again tomorrow. Case discussed with Dr. Rachel Love, PGY1
[2018-07-19] MEDS: Pantoprazole 40 mg EC Tab PO SCH (10:33)
[2018-07-19] MEDS: Potassium Chloride 20 mEq ER Tab PO SCH (10:34)
[2018-07-19] MEDS: Enoxaparin 40 mg Syringe SC SCH (10:39)
[2018-07-19] MEDS ORDERED: Influenza Vaccine 60 MCG/0.5 ML SYR (3 yr & up) IM ONE (12:00)
[2018-07-19] MEDS ORDERED: Pneumococcal 23-Valent Vaccine IM ONE (12:00)
--- NOTE | 2018-07-19 14:11 | CP.PCM.DIS ---
Provider - Provider Date of Admission: 07/17/18 10:53 Attending physician: Kwesi Ramos MD Time Spent in preparation of Discharge (in minutes): 45 Diagnosis - Discharge Diagnosis (1) CHF (congestive heart failure) Status: Acute Hospital Course - Lab Results Lab Results: Most Recent Lab Values WBC 6.7 K/uL (4.8-10.8) 07/19/18 07:12 RBC 4.71 Mil/uL (3.80-5.20) 07/19/18 07:12 Hgb 12.6 g/dL (11.0-16.0) 07/19/18 07:12 Hct 37.0 % (34.0-47.0) 07/19/18 07:12 MCV 78.6 fL (81.0-99.0) L 07/19/18 07:12 MCH 26.9 pg (27.0-31.0) L 07/19/18 07:12 MCHC 34.2 g/dL (33.0-37.0) 07/19/18 07:12 RDW 13.0 % (11.5-14.5) 07/19/18 07:12 Plt Count 81 K/uL (130-400) L 07/19/18 07:12 MPV 9.0 fL (7.2-11.7) 07/19/18 07:12 Neut % (Auto) 48.4 % (50.0-75.0) L 07/19/18 07:12 Lymph % (Auto) 30.1 % (20.0-40.0) 07/19/18 07:12 [place] % (Auto) 14.4 % (0.0-10.0) H 07/19/18 07:12 Eos % (Auto) 6.7 % (0.0-4.0) H 07/19/18 07:12 Baso % (Auto) 0.4 % (0.0-2.0) 07/19/18 07:12 Neut # (Auto) 3.3 K/uL (1.8-7.0) 07/19/18 07:12 Lymph # (Auto) 2.0 K/uL (1.0-4.3) 07/19/18 07:12 [place] # (Auto) 1.0 K/uL (0.0-0.8) H 07/19/18 07:12 Eos # (Auto) 0.4 K/uL (0.0-0.7) 07/19/18 07:12 Baso # (Auto) 0.0 K/uL (0.0-0.2) 07/19/18 07:12 Differential Comment 07/18/18 14:04 Smear Path Review 07/17/18 09:46 ESR 12 mm/hr (0-20) 07/19/18 07:12 Sodium 140 mmol/L (132-148) 07/19/18 07:12 Potassium 3.9 mmol/L (3.6-5.2) 07/19/18 07:12 Chloride 105 mmol/L (98-107) 07/19/18 07:12 Carbon Dioxide 25 mmol/L (22-30) 07/19/18 07:12 Anion Gap 14 (10-20) 07/19/18 07:12 BUN 27 mg/dL (7-17) H 07/19/18 07:12 Creatinine 0.8 mg/dL (0.7-1.2) 07/19/18 07:12 Est GFR ( Amer) > 60 07/19/18 07:12 Est GFR (Non-Af Amer) > 60 07/19/18 07:12 Random Glucose 140 mg/dL (65-105) H 07/19/18 07:12 Calcium 8.8 mg/dl (8.6-10.4) 07/19/18 07:12 Phosphorus 2.9 mg/dL (2.5-4.5) 07/19/18 07:12 Magnesium 2.1 mg/dL (1.6-2.3) 07/19/18 07:12 Total Bilirubin 0.4 mg/dL (0.2-1.3) 07/19/18 07:12 AST 20 U/L (14-36) 07/19/18 07:12 ALT 28 U/L (9-52) 07/19/18 07:12 Alkaline Phosphatase 48 U/L (38-126) 07/19/18 07:12 CK-MB (Mass) 1.31 ng/mL (0.0-3.38) 07/17/18 09:46 Troponin I < 0.0120 ng/mL (0.00-0.120) 07/18/18 02:13 NT-Pro-B Natriuret Pep 576 pg/mL (0-900) 07/17/18 09:46 Total Protein 6.3 g/dL (6.3-8.3) 07/19/18 07:12 Albumin 3.5 g/dL (3.5-5.0) 07/19/18 07:12 Globulin 2.8 gm/dL (2.2-3.9) 07/19/18 07:12 Albumin/Globulin Ratio 1.3 (1.0-2.1) 07/19/18 07:12 Triglycerides 370 mg/dL (0-149) H D 07/17/18 09:46 Cholesterol 120 mg/dL (0-199) 07/17/18 09:46 LDL Cholesterol Direct 56 mg/dL (0-129) 07/17/18 09:46 HDL Cholesterol 19 mg/dL (30-70) L 07/17/18 09:46 TSH 3rd Generation 0.82 mIU/L (0.46-4.68) 07/18/18 02:13 Urine Color Yellow (YELLOW) 07/17/18 14:33 Urine Clarity Clear (Clear) 07/17/18 14:33 Urine pH 5.0 (5.0-8.0) 07/17/18 14:33 Ur Specific [place] 1.009 (1.003-1.030) 07/17/18 14:33 Urine Protein Negative mg/dL (NEGATIVE) 07/17/18 14:33 Urine Glucose (UA) Normal mg/dL (Normal) 07/17/18 14:33 Urine Ketones Negative mg/dL (NEGATIVE) 07/17/18 14:33 Urine Blood Negative (NEGATIVE) 07/17/18 14:33 Urine Nitrate Negative (NEGATIVE) 07/17/18 14:33 Urine Bilirubin Negative (NEGATIVE) 07/17/18 14:33 Urine Urobilinogen Normal mg/dL (0.2-1.0) 07/17/18 14:33 Ur Leukocyte Esterase Trace Anthony/uL (Negative) 07/17/18 14:33 Urine WBC (Auto) 1 /hpf (0-5) 07/17/18 14:33 Urine RBC (Auto) < 1 /hpf (0-3) 07/17/18 14:33 Ur Squamous Epith Cells < 1 /hpf (0-5) 07/17/18 14:33 Urine Bacteria Mod (<OCC) H 07/17/18 14:33 Hyaline Casts 3-5 /lpf (0-2) H 07/17/18 14:33 Rheumatoid Arth Interp Negative (NEGATIVE) 07/17/18 20:00 VICTORIANO 6 Profile Negative (NEGATIVE) 07/17/18 20:00 - Hospital Course Hospital Course: Patient is an 83 year old female with PMH of HTN, HLD, asthma, GERD, possible CAD, migraine, and anxiety presenting with chest pain. She states that the pain started this morning when she woke up. She describes the pain to be burning, sharp, located in the middle of her chest, non-radiating, and 8/10 in severity. She states nothing makes the pain better or worse. She admits to one episode on non-bloody vomiting and one episode of non-bloody diarrhea last night. She denies palpitations, extremity swelling, and diaphoresis. She states that she has had this pain intermittently for many years. She was in [facility] 2 weeks ago for the same complaints and said that they did a lot of tests but everything was normal. She sees Dr. Vasiliy Hoyt and last saw him 4 days ago for chest pain. Dr. Amanda said everything was normal. Patient denies fevers, chills, cough, shortness of breath, abdominal pain, or urinary symptoms. EKG, bloodwork done in ED were unremarkable. CXR showed extensive pulm vasc congestion, borderline cardiomegaly. Started on Lasix, Duoneb, one time Solumedrol. Home metoprolol held due to bradycardia. Dr. Rodriguez, flowers salesperson, consulted for CHF and started patient on proper CHF medication. ECHO showed LVEF 77% and LVH with diastolic dysfunction, mod dilated LA. Chest CT showed marginal pulm vasc congestion with limited bilateral dependent atelectasis. Repeat CXR showed slight improvement. Patient has clinically improved. Her other chronic comorbidities were well controlled on home medications. Primary Diagnosis: CHF exacerbation Patient is clear for discharge per Dr. Ramos and Dr. Rodriguez. You are being prescribed 5 new medications for your history of heart failure. Please take them as prescribed: Aspirin 81mg by mouth once a day Amlodipine 5mg by mouth once a day Furosemide 20mg by mouth once a day Lisinopril 5mg by mouth Rosuvastatin 10mg by mouth at bedtime Please followup outpatient with your flowers salesperson within one week. Please also followup with your PMD within one week to refill your medications. If chest pain returns or you feel other symptoms (ie. headache, dizziness, fainting) please do not hesitate to return to the ED. Of note, patient was offered MONI per PT's recommendation, but patient refused. Plan was discussed with patient who unders tood and agrees. This is a summary of the hospital course. Please refer to the EMR for more details. - Date & Time of H&P Date of H&P: 07/19/18 Time of H&P: 08:30 Discharge Exam - Head Exam Head Exam: ATRAUMATIC, NORMOCEPHALIC - Eye Exam Eye Exam: EOMI, PERRL - ENT Exam ENT Exam: Mucous Membranes Moist - Respiratory Exam Respiratory Exam: Rales, NORMAL BREATHING PATTERN. absent: Accessory Muscle Use Additional comments: mild rales on L lung base - Cardiovascular Exam Cardiovascular Exam: REGULAR RHYTHM, +S1, +S2. absent: Gallop, Rubs, Systolic Murmur - GI/Abdominal Exam GI & Abdominal Exam: Normal Bowel Sounds, Soft. absent: Distended, Firm, Guarding, Tenderness - Extremities Exam Extremities exam: normal capillary refill Additional comments: peripheral pulses intact bilaterally (radial, PT) - Neurological Exam Neurological exam: Alert, Oriented x3, Reflexes Normal - Skin Skin Exam: Dry, Normal Color, Warm Discharge Plan - Discharge Medications Prescriptions: amLODIPine 5 mg PO DAILY #14 Aspirin [Aspirin Chewable] 81 mg PO DAILY #14 chew Furosemide [Lasix] 20 mg PO DAILY #14 tablet Lisinopril [Zestril] 5 mg PO DAILY #14 tab Rosuvastatin Calcium [Crestor] 10 mg PO HS #14 tab - Follow Up Plan Condition: FAIR Disposition: HOME/ ROUTINE Clinical Quality Measures - CQM - Heart Failure Ejection Fraction: 40 % or Greater SOHA Inhibitor Prescribed: Yes Beta-Gillian Prescribed: None Contraindication/Reason for not providing: bradycardia
[2018-07-19 17:10] VITALS: PULSE 68
[2018-07-19 18:18] VITALS: TEMP 97.7; O2SAT 98
[2018-07-19 18:35] VITALS: BP 136/78
--- NOTE | 2018-07-19 19:24 | PN ---
DATE: 07/19/2018 SUBJECTIVE: The patient denies dizziness or headache. PHYSICAL EXAMINATION: VITAL SIGNS: Blood pressure 170/83, heart rate 65, temperature 98.3, respirations 20. HEENT: Normocephalic. CHEST: Clear. HEART: S1, S2 regular. EXTREMITIES: No edema. LABORATORY STUDIES: Hemoglobin and hematocrit 12.6 and 37, white count 6.7, platelet count has improved to 81,000. Today's SMA-7 is within normal limits except for glucose of 140 and BUN of 27. ASSESSMENT: 1. Improved pulmonary congestion. 2. Diastolic left ventricular dysfunction. 3. Improved thrombocytopenia and leukopenia. 4. Systemic hypertension. PLAN: The patient's case was discussed with the medical team, the attending and the medical records manager. The patient will be discharged on Lasix 20 mg orally once a day, aspirin 81 mg once a day, and Zestril at 5 mg once a day. Hold beta-kailee for now and the patient will be followed by her own transonic engineer as an outpatient. Andrew Palomo MD
== END 2018-07-19 19:30 | disposition home or self-care (01) | DRG 292 ==
LOC: C.ER 08:45 → C.9E 10:53 → C.6T 11:07
PROVIDERS: ADMIT Internal Medicine; ATTEND Internal Medicine
DX: I11.0 Hypertensive heart disease with heart failure (principal); J98.11 Atelectasis; J45.909 Unspecified asthma, uncomplicated; I25.110 Atherosclerotic heart disease of native coronary artery with unstable angina pectoris; I50.33 Acute on chronic diastolic (congestive) heart failure; I50.30 Unspecified diastolic (congestive) heart failure; D69.6 Thrombocytopenia, unspecified; E11.65 Type 2 diabetes mellitus with hyperglycemia; E78.5 Hyperlipidemia, unspecified; E87.6 Hypokalemia; K21.9 Gastro-esophageal reflux disease without esophagitis; G43.909 Migraine, unspecified, not intractable, without status migrainosus; D72.819 Decreased white blood cell count, unspecified